=== PATIENT | female | born 1950 | race Caucasian/White ===

== ENCOUNTER 2020-03-17 07:35 | Outpatient (REF) | payer OTHER, SELFPAY ==
[2020-03-17 08:21] LABS: MANUAL DIFF FLAG NO
[2020-03-17 08:30] LABS: Basophils Absolute Auto 0.1 X10*3/uL (0.0-0.2); Eosinophils Absolute Auto 0.2 X10*3/uL (0.0-0.4); Eosinophils Percent Auto 2.8 % (0-4); Hematocrit 40.8 % (37-47); Hemoglobin 13.7 g/dl (12.0-16.0); Imm Gran Abs Auto 0.02 X10*3/uL (0.00-0.03); Imm Gran Pct Auto 0.3 % (0.0-0.4); Lymphocytes Absolute Auto 2.2 X10*3/uL (1.2-4.9); Lymphocytes Percent Auto 38.8 % (20-40); Mean Corpuscular HGB Conc 33.6 g/dl (31.0-35.0); Mean Corpuscular Hemoglobin 28.9 pg (27.0-33.0); Mean Corpuscular Volume 86.1 fL (80-98); Mean Platelet Volume 9.8 fL (9.4-12.3); Monocytes Absolute Auto 0.4 X10*3/uL (0.1-1.2); Monocytes Percent Auto 6.6 % (2-11); Neutrophils Absolute Auto 2.9 X10*3/uL (2.0-8.3); Neutrophils Percent Auto 50.5 % (45-73); Platelet Count 287 X10*3/uL (160-400); Red Blood Count 4.74 X10*6/uL (4.20-5.50); Red Cell Distribution Width 12.1 % (11.0-16.0); White Blood Count 5.8 X10*3/uL (4.8-10.8)
[2020-03-17 08:41] LABS: Glucose Urine UA NEG (NEG); Leukocyte Esterase Urine 1+ (NEG); Nitrite Urine POS (NEG); Specific Gravity - Urine 1.025 (1.005-1.025); Urine Blood 1+ (NEG); Urine Ketones NEG (NEG); Urine Protein NEG (NEG-TRACE)
[2020-03-17 08:45] LABS: Appearance Urine CLOUDY; Color Urine YELLOW
[2020-03-17 08:51] LABS: Bacteria Urine 2+ /LPF; Mucus Urine 1+ /LPF; Renal Epithelial Cells Urine TRACE /LPF; Squamous Epithelial Cell Urine 1+ /LPF; WBC Clumps Urine NOTED
[2020-03-17 08:57] LABS: Estimated Average Glucose 111 mg/dL; Hemoglobin A1c % 5.5 %
[2020-03-17 09:18] LABS: Alanine Aminotransferase 23 U/L (0-31); Albumin Level 4.6 g/dL (3.5-5.0); Alkaline Phosphatase 87 U/L (39-117); Anion Gap 12 (12-20); Aspartate Amino Transferase 17 U/L (5-31); Bilirubin Total 0.5 mg/dL (0.0-1.0); Blood Urea Nitrogen 18 mg/dL (9-16); Calcium 9.6 mg/dL (8.4-10.2); Carbon Dioxide 27 mmol/L (22-29); Chloride 105 mmol/L (96-108); Cholesterol 237 mg/dL; Estimated Glomerular Filt Rate > 60; Glucose Fasting 112 mg/dL (60-99); HDL Cholesterol 54 mg/dL; LDL Cholesterol Calculated 137 mg/dl; Potassium 4.2 mmol/L (3.3-5.1); Sodium 140 mmol/L (135-145); Total Protein 7.4 g/dL (6.5-8.0); Triglycerides 233 mg/dL
[2020-03-17 10:11] LABS: Creatinine Urine 92.18 mg/dL; Microalbum/Creatinine Ratio Ur 28.2 ug/mg cr
== END 2020-03-17 07:36 | disposition home or self-care (01) ==
LOC: HO.LAB 07:35
PROVIDERS: PCP Internal Medicine; Visit Provider Internal Medicine
DX: Z00.00 Encounter for general adult medical examination without abnormal findings (principal); R73.09 Other abnormal glucose; E78.00 Pure hypercholesterolemia, unspecified
CPT/HCPCS: 36415; 80053; 80061; 81001; 82043; 83036; 85025

== ENCOUNTER 2020-04-02 08:10 | Outpatient (REF) | payer OTHER, SELFPAY ==
--- NOTE | ~2020-04-02 | MM_ITS ---
EXAMINATION: BONE DENSITOMETRY CLINICAL INDICATION: Other specified disorders of bone density and structure. COMPARISON: None (current study represents initial baseline exam). TECHNIQUE: Using a Visante DXA System (software version: 13.1) manufactured by [employer], dual-energy x-ray absorptiometry was performed of the lumbar spine and left hip. The images are of good technical quality. Summary results are attached. FINDINGS: AP SPINE L1-L4: BMD 1.027 g/cm2, Z-score -0.1, T-score -1.3, osteopenia. LEFT FEMUR, NECK: BMD 0.867 g/cm2, Z-score 0.0, T-score -1.2, osteopenia. LEFT FEMUR, TOTAL: BMD 0.899 g/cm2, Z-score 0.1, T-score -0.9, normal. IDENTIFIED RISK FACTORS: Menopause. HISTORY OF FRACTURE: None listed. MEDICATIONS: None listed. MM/XR DEXA axial skeleton IMPRESSION: 1. DIAGNOSIS: Osteopenia based on the lowest T-score value of -1.3 in the lumbar spine applying World Health Organization criteria. 2. 10-YEAR FRACTURE RISK PREDICTION, FRAX: Major osteoporotic fracture (clinical spine, forearm, hip or shoulder) 8.7%. Hip fracture 0.9%. 3. Treatment Recommendations: NOF guidelines recommend consideration for treatment in postmenopausal women and men age 50 and older presenting with the following: -A hip or vertebral (clinical or morphometric) fracture. -T-score less than or equal to -2.5 at the femoral neck or spine after appropriate evaluation to exclude secondary causes. -Low bone mass at the hip or spine and a 10-year fracture probability by FRAX of greater than or equal to 3% for hip fracture or greater than or equal to 20% for major osteoporotic fracture based on the [place] adapted WHO algorithm. 4. Other Recommendations: All treatment decisions require clinical judgment and consideration of individual patient factors, including patient preferences, comorbidities, previous drug use, risk factors not captured in the FRAX model (e.g. frailty, falls, vitamin D deficiency, increased bone turnover, interval significant decline in bone density) and possible under or overestimation of fracture risk by FRAX. Additional medical evaluation for secondary cause of low bone mineral density may be appropriate. FUTURE SCAN RECOMMENDATION: People with diagnosed cases of osteoporosis or at high risk for fracture should have regular bone mineral density tests. For patients eligible for Medicare, routine testing is allowed once every 2 years. The testing frequency can be increased to one year for patients who have rapidly progressing disease, those who are receiving or discontinuing medical therapy to restore bone mass, or have additional risk factors.
== END 2020-04-02 08:11 | disposition home or self-care (01) ==
LOC: HO.MAMMO 08:10
PROVIDERS: Visit Provider Internal Medicine
DX: Z13.820 Encounter for screening for osteoporosis (principal); M85.80 Other specified disorders of bone density and structure, unspecified site; Z78.0 Asymptomatic menopausal state
CPT/HCPCS: 77080

== ENCOUNTER 2021-03-25 07:50 | Outpatient (REF) | payer MEDICARE, SELFPAY ==
[2021-03-25 10:51] LABS: MANUAL DIFF FLAG NO
[2021-03-25 11:15] LABS: Basophils Absolute Auto 0.1 X10*3/uL (0.0-0.2); Eosinophils Absolute Auto 0.1 X10*3/uL (0.0-0.4); Eosinophils Percent Auto 2.1 % (0-4); Hemoglobin 14.3 g/dl (12.0-16.0); Imm Gran Abs Auto 0.01 X10*3/uL (0.00-0.03); Imm Gran Pct Auto 0.2 % (0.0-0.4); Lymphocytes Absolute Auto 2.1 X10*3/uL (1.2-4.9); Lymphocytes Percent Auto 35.7 % (20-40); Mean Corpuscular Hemoglobin 29.6 pg (27.0-33.0); Mean Platelet Volume 9.8 fL (9.4-12.3); Monocytes Absolute Auto 0.5 X10*3/uL (0.1-1.2); Monocytes Percent Auto 8.1 % (2-11); Neutrophils Absolute Auto 3.1 x10*3/uL (2.0-8.3); Neutrophils Percent Auto 52.9 % (45-73); Platelet Count 293 X10*3/uL (160-400); Red Blood Count 4.83 X10*6/uL (4.20-5.50); Red Cell Distribution Width 12.9 % (11.0-16.0); White Blood Count 5.8 X10*3/uL (4.8-10.8)
[2021-03-25 11:21] LABS: Estimated Average Glucose 120 mg/dL; Hemoglobin A1C 151.5014 umol/L; Hemoglobin A1c % 5.8 %
[2021-03-25 11:28] LABS: Alanine Aminotransferase 54 U/L (0-31); Albumin Level 4.7 g/dL (3.5-5.0); Alkaline Phosphatase 96 U/L (39-117); Anion Gap 13 (12-20); Aspartate Amino Transferase 32 U/L (5-31); Bilirubin Total 0.7 mg/dL (0.0-1.0); Blood Urea Nitrogen 17 mg/dL (9-16); Calcium 10.4 mg/dL (8.4-10.2); Carbon Dioxide 28 mmol/L (22-29); Chloride 105 mmol/L (96-108); Cholesterol 261 mg/dL; Estimated Glomerular Filt Rate 57; Glucose Random 142 mg/dL (60-115); HDL Cholesterol 47 mg/dL; LDL Cholesterol Calculated 166 mg/dl; Potassium 4.4 mmol/L (3.3-5.1); Sodium 142 mmol/L (135-145); Total Protein 7.9 g/dL (6.5-8.0); Triglycerides 243 mg/dL
[2021-03-25 11:49] LABS: Creatinine Urine 122.57 mg/dL
[2021-03-25 11:51] LABS: Appearance Urine CLOUDY; Color Urine YELLOW; Glucose Urine UA NEG (NEG); Leukocyte Esterase Urine 1+ (NEG); Nitrite Urine POS (NEG); PH 5.5 (5.0-8.0); Specific Gravity - Urine >= 1.030 (1.005-1.025); Urine Blood 1+ (NEG); Urine Ketones NEG (NEG); Urine Protein NEG (NEG-TRACE)
[2021-03-25 12:04] LABS: Bacteria Urine 3+ /LPF; RBC Urine 0-2 /HPF (0); Squamous Epithelial Cell Urine TRACE /LPF
== END 2021-03-25 07:51 | disposition home or self-care (01) ==
LOC: HO.LNP 07:50
PROVIDERS: Visit Provider Internal Medicine
DX: Z00.00 Encounter for general adult medical examination without abnormal findings (principal); R73.03 Prediabetes; E78.00 Pure hypercholesterolemia, unspecified
CPT/HCPCS: 80053; 80061; 81001; 81003; 82043; 83036; 85025

== ENCOUNTER 2021-04-01 15:20 | Outpatient (REF) | payer MEDICARE, SELFPAY ==
[2021-04-01 15:33] LABS: Calcium 10.2 mg/dL (8.4-10.2)
== END 2021-04-01 15:21 | disposition home or self-care (01) ==
LOC: HO.LNP 15:20
PROVIDERS: Visit Provider Internal Medicine
DX: E83.52 Hypercalcemia (principal); N30.01 Acute cystitis with hematuria
CPT/HCPCS: 82310; 87086; 87088; 87186

== ENCOUNTER 2021-08-21 18:39 | Emergency (ER) | payer MEDICARE, SELFPAY ==
--- NOTE | ~2021-08-21 | XR_ITS ---
EXAMINATION: XR CHEST CLINICAL INFORMATION: Fever COMPARISON: 10/29/2018 TECHNIQUE: Frontal view of the chest was obtained. FINDINGS: No defined opacity in the right medial lung base suggest an infiltrate. Possible mild left basilar infiltrate. The mid-upper lung zones are grossly clear. There is no failure. No effusion. The cardiac silhouette is comparable to previous. XR/XR chest 1V IMPRESSION: Findings suggest bilateral basilar infiltrates.
--- NOTE | ~2021-08-21 | CT_ITS ---
EXAMINATION: CT HEAD WITHOUT CONTRAST CLINICAL INFORMATION: Altered mental status COMPARISON: None TECHNIQUE: Contiguous axial imaging was performed from the skull base to vertex without intravenous administration of contrast. This CT examination was performed using dose optimization techniques as appropriate, variously including the following: *Automated exposure control *Adjustment of mA and/or kV according to patient size (this includes techniques or standardized protocols for targeted exams where dose is matched to indication/reason for exam; i.e. extremities or head) *Use of iterative reconstruction technique DLP: 659 mGy-cm FINDINGS: There is no evidence of acute intracranial hemorrhage or territorial infarction. No abnormal mass effect or midline shift is seen. Spaulding to white matter differentiation is well preserved. No extra-axial fluid collections are identified. The ventricles are normal in size. There is no abnormal attenuation within the brain parenchyma. The osseous structures and soft tissues are normal. The mastoid air cells and visualized portions of the paranasal sinuses are well aerated. CT/CT head/brain wo con IMPRESSION: No acute intracranial pathology.
[2021-08-21 18:51] VITALS: BP 153/70; BP 160/68; PULSE 104; PULSE 90; RESP 16; TEMP 39.3; O2SAT 95; BMI 31.9
--- NOTE | 2021-08-21 19:02 | ECG_ITS ---
Test Reason : cp Blood Pressure : / mmHG Vent. Rate : 083 BPM Atrial Rate : 083 BPM P-R Int : 210 ms QRS Dur : 082 ms QT Int : 390 ms P-R-T Axes : 033 002 075 degrees QTc Int : 458 ms Sinus rhythm with 1st degree A-V block Possible Inferior infarct , age undetermined Abnormal ECG When compared with ECG of 29-OCT-2018 20:09, No significant change was found Referred By: Reta Rushing Electronically Signed By:Michael Cruz
--- NOTE | 2021-08-21 19:05 | ED.AMS ---
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 Patient family noted she was not quite right since yesterday. She feels malaisa, nausea, felt off and confused. She is having some difficulty findings words and feels foggy. She denies trauma, ETOH, fevers, new medications. She only takes Tylenol PM PRN. States she had two home positive tests for COVID on 07/26 she is vaccinated x 4. MD complaint: confusion Onset (ago): day(s) (yesterday) Timing confirmed by: family member Severity: mild Consistency of symptoms: waxing and waning Context: other (only new thing is patient reports new stressful family event) Associated symptoms: loss of appetite, malaise, nausea/vomiting and other (confusion) Treatments prior to arrival: other Related Data Previous Rx's Medication Instructions Recorded levofloxacin 500 mg tablet 500 mg PO DAILY 7 days #7 tabs 08/21/21 Allergies Allergy/AdvReac Type Severity Reaction Status Date / Time No Known Allergies Allergy Unverified 10/24/19 15:55 [No Known Allergies*] Review of Systems Review of Systems: Constitutional : No Fever, No Chills, pos Fatigue, pos Malaise ENT/Mouth : No sore throat, No Rhinorrhea Eyes: No Eye Pain, No Swelling, No Redness Cardiovascular : No Chest Pain, No SOB, No Dyspnea on Exertion, No Orthopnea, No Edema, No Palpitations Respiratory : No Cough, No Sputum, No Wheezing Gastrointestinal : No Nausea, No Vomiting, No Diarrhea, No Constipation, No abdominal Pain, No Hematochezia, No Melena Genitourinary : No Dysuria, No Urinary Frequency, No Hematuria, Musculoskeletal : No joint pain, No Myalgias, No Joint Swelling Skin : No Skin Lesions, No rash Neuro : No Weakness, No Numbness, No Dizziness, No Headache, pos confusion Psych : No Anxiety/Panic, No Depression, pos emotional stress Heme/Lymph: No Bruising, No Bleeding,No Lymphadenopathy Endocrine : No Polyuria, No Polydipsia All other systems reviewed and are negative [facility] Past Medical History Attestation statement: The following information was validated with the patient. Medical History No pertinent past medical history Social History Social History (Updated 08/21/21 @ 19:09 by Reta Rushing DO) Alcohol intake: current Alcohol intake frequency: holidays/special occasions only Patient Tobacco Use Status: Never used Tobacco Advance Directives: No Advance Directives Information Provided: Yes Physical Exam ED Vital Signs: Vital Signs - 24 hr 08/21/21 18:51 08/21/21 20:11 Temperature 102.8 F H Pulse Rate 104 H 95 Respiratory Rate 16 16 Blood Pressure 153/70 H 155/65 H Pulse Oximetry 95 95 Oxygen Delivery Method Room Air Room Air BMI result Body Mass Index 31.9 Appearance: Alert. Oriented X3. No acute distress. Eyes: Pupils equal, round and reactive to light. ENT: Pharynx normal. Neck: Normal inspection. Neck supple. no meningeal signs CVS: tachycardic heart rate and rhythm. Pulses normal. Respiratory: No respiratory distress. Breath sounds normal. Abdomen: Soft and non-tender. Skin: Skin warm and dry. Normal skin color. Normal skin turgor. Extremities: No lower extremity edema. No calf ttp Neuro: Oriented X 3. No motor deficit. No sensory deficit. Slow to respond at times, intermittent word finding difficulties Course Course Course Narrative: at this time bacterial infection suspected 750pm - empiric antibiotics ordered, ceftriaxone and azithromycin for CAP ordered given low Na and LFTs will Rx levofloxacin, patient refusing to stay alert and oriented x 3 now that fever is down, partner at bedside aware of findings- they want to go home, given strict precautions to return MDM - Altered Mental Status MDM Narrative Medical decision making narrative: 70 yo female with no PMH came to ED with confusion since yesterday just feeling off with brain fog and some word finding difficulties but no other symptoms. She reports positive home test for COVID on 07/26 after traveling to [place]. At this time she is febrile in the ED. Will obtain labs, cultures, CXR and UA. COVID/flu swab. hydrate and IVF. She has no meningeal signs on exa - no headaches or neck pain Lab Data Result diagrams: 08/21/21 20:00 08/21/21 20:00 Labs: Lab Results 08/21/21 08/21/21 08/21/21 Range/Units 19:46 19:46 20:00 WBC 16.6 H (4.8-10.8) X10*3/uL RBC 4.23 (4.20-5.50) X10*6/uL Hgb 12.6 (12.0-16.0) g/dl Hct 36.0 L (37.0-47.0) % MCV 85.1 (80.0-98.0) fL MCH 29.8 (27.0-33.0) pg MCHC 35.0 (31.0-35.0) g/dl RDW 12.8 (11.0-16.0) % Plt Count 217 D (160-400) X10*3/uL MPV 9.7 (9.4-12.3) fL Immature Gran % (Auto) 0.5 H (0.0-0.4) % Neut % (Auto) 86.9 H (45-73) % Lymph % (Auto) 6.4 L (20-40) % [place] % (Auto) 5.9 (2-11) % Eos % (Auto) 0.0 (0-4) % Baso % (Auto) 0.3 (0-2) % Lymph # (Auto) 1.1 L (1.2-4.9) X10*3/uL [place] # (Auto) 1.0 (0.1-1.2) X10*3/uL Eos # (Auto) 0.0 (0.0-0.4) X10*3/uL Baso # (Auto) 0.1 (0.0-0.2) X10*3/uL Abs Immat Gran (auto) 0.08 H (0.00-0.03) X10*3/uL Absolute Neuts (auto) 14.4 H (2.0-8.3) x10*3/uL Absolute Nucleated RBC 0.000 (0.0-0.012) X10*3/uL Nucleated RBC % (auto) 0.0 (0.0-0.2) /100WBC PT (10.0-13.1) SEC INR (0.9-1.1) Sodium (135-145) mmol/L Potassium (3.3-5.1) mmol/L Chloride (96-108) mmol/L Carbon Dioxide (22-29) mmol/L Anion Gap (12-20) BUN (9-16) mg/dL Creatinine (0.5-1.4) mg/dL Estim Creat Clear Calc Estimated GFR Random Glucose (60-115) mg/dL Lactic Acid (0.5-2.0) mmol/L Calcium (8.4-10.2) mg/dL Magnesium (1.6-2.6) mg/dL Total Bilirubin (0.0-1.0) mg/dL Direct Bilirubin (0.0-0.5) mg/dL AST (5-31) U/L ALT (0-31) U/L Alkaline Phosphatase (39-117) U/L Troponin I High Sens (<3.5-17.0) ng/L Total Protein (6.5-8.0) g/dL Albumin (3.5-5.0) g/dL Lipase (8-78) U/L COVID-19 (PARK) Negative (Negative) COVID-19 Clin Com See Note Influenza Type A (REBECA) Negative (Negative) Influenza Type B (REBECA) Negative (Negative) Influenza A & B Note See Note 08/21/21 08/21/21 08/21/21 Range/Units 20:00 20:00 20:00 WBC (4.8-10.8) X10*3/uL RBC (4.20-5.50) X10*6/uL Hgb (12.0-16.0) g/dl Hct (37.0-47.0) % MCV (80.0-98.0) fL MCH (27.0-33.0) pg MCHC (31.0-35.0) g/dl RDW (11.0-16.0) % Plt Count (160-400) X10*3/uL MPV (9.4-12.3) fL Immature Gran % (Auto) (0.0-0.4) % Neut % (Auto) (45-73) % Lymph % (Auto) (20-40) % [place] % (Auto) (2-11) % Eos % (Auto) (0-4) % Baso % (Auto) (0-2) % Lymph # (Auto) (1.2-4.9) X10*3/uL [place] # (Auto) (0.1-1.2) X10*3/uL Eos # (Auto) (0.0-0.4) X10*3/uL Baso # (Auto) (0.0-0.2) X10*3/uL Abs Immat Gran (auto) (0.00-0.03) X10*3/uL Absolute Neuts (auto) (2.0-8.3) x10*3/uL Absolute Nucleated RBC (0.0-0.012) X10*3/uL Nucleated RBC % (auto) (0.0-0.2) /100WBC PT 13.4 H (10.0-13.1) SEC INR 1.2 H (0.9-1.1) Sodium 133 L (135-145) mmol/L Potassium 3.6 (3.3-5.1) mmol/L Chloride 100 (96-108) mmol/L Carbon Dioxide 22 (22-29) mmol/L Anion Gap 15 (12-20) BUN 14 (9-16) mg/dL Creatinine 0.96 (0.5-1.4) mg/dL Estim Creat Clear Calc 61.1 Estimated GFR 58 Random Glucose 135 H (60-115) mg/dL Lactic Acid 1.3 (0.5-2.0) mmol/L Calcium 9.3 D (8.4-10.2) mg/dL Magnesium 1.9 (1.6-2.6) mg/dL Total Bilirubin 1.5 H (0.0-1.0) mg/dL Direct Bilirubin 0.6 H (0.0-0.5) mg/dL AST 40 H (5-31) U/L ALT 78 H (0-31) U/L Alkaline Phosphatase 97 (39-117) U/L Troponin I High Sens (<3.5-17.0) ng/L Total Protein 7.4 (6.5-8.0) g/dL Albumin 4.5 (3.5-5.0) g/dL Lipase 8 (8-78) U/L COVID-19 (PARK) (Negative) COVID-19 Clin Com Influenza Type A (REBECA) (Negative) Influenza Type B (REBECA) (Negative) Influenza A & B Note 08/21/21 Range/Units 20:00 WBC (4.8-10.8) X10*3/uL RBC (4.20-5.50) X10*6/uL Hgb (12.0-16.0) g/dl Hct (37.0-47.0) % MCV (80.0-98.0) fL MCH (27.0-33.0) pg MCHC (31.0-35.0) g/dl RDW (11.0-16.0) % Plt Count (160-400) X10*3/uL MPV (9.4-12.3) fL Immature Gran % (Auto) (0.0-0.4) % Neut % (Auto) (45-73) % Lymph % (Auto) (20-40) % [place] % (Auto) (2-11) % Eos % (Auto) (0-4) % Baso % (Auto) (0-2) % Lymph # (Auto) (1.2-4.9) X10*3/uL [place] # (Auto) (0.1-1.2) X10*3/uL Eos # (Auto) (0.0-0.4) X10*3/uL Baso # (Auto) (0.0-0.2) X10*3/uL Abs Immat Gran (auto) (0.00-0.03) X10*3/uL Absolute Neuts (auto) (2.0-8.3) x10*3/uL Absolute Nucleated RBC (0.0-0.012) X10*3/uL Nucleated RBC % (auto) (0.0-0.2) /100WBC PT (10.0-13.1) SEC INR (0.9-1.1) Sodium (135-145) mmol/L Potassium (3.3-5.1) mmol/L Chloride (96-108) mmol/L Carbon Dioxide (22-29) mmol/L Anion Gap (12-20) BUN (9-16) mg/dL Creatinine (0.5-1.4) mg/dL Estim Creat Clear Calc Estimated GFR Random Glucose (60-115) mg/dL Lactic Acid (0.5-2.0) mmol/L Calcium (8.4-10.2) mg/dL Magnesium (1.6-2.6) mg/dL Total Bilirubin (0.0-1.0) mg/dL Direct Bilirubin (0.0-0.5) mg/dL AST (5-31) U/L ALT (0-31) U/L Alkaline Phosphatase (39-117) U/L Troponin I High Sens 5.6 (<3.5-17.0) ng/L Total Protein (6.5-8.0) g/dL Albumin (3.5-5.0) g/dL Lipase (8-78) U/L COVID-19 (PARK) (Negative) COVID-19 Clin Com Influenza Type A (REBECA) (Negative) Influenza Type B (REBECA) (Negative) Influenza A & B Note ECG Data ECG #1: Attestation: I personally reviewed and interpreted this ECG as follows: Interpretation: Rate: 83 Rhythm: NSR with 1st degree AVB Cowen: normal Normal P waves. 1st degree AVB Normal QRS complex. ST T wave : normal no LUCILLE qTC: normal prior studies: no acute ischemia The study has been interpreted contemporaneously by me. Discharge Plan Discharge Clinical Impression: Fever, Pneumonia, Leukocytosis Patient Disposition: Home, Self-Care Instructions: Fever in Adults (ED), Leukocytosis (ED), Pneumonia (ED) Additional Instructions: return to ED for any worsening symptoms or concerns if you worsen please return, you were offered admission but refused. you have pneumonia. your antibiotic can cause tendon injury do not exercise while you are on it Prescriptions: New levofloxacin 500 mg tablet 500 mg PO DAILY 7 Days Qty: 7 0RF Stand Alone Forms: Work/School Release Interventions: ED Discharge Assessment Last Done: 08/21/21 22:35 Discharge Date/Time: 08/21/21 22:36
[2021-08-21] MEDS: Acetaminophen 325 MG TABLET 650 MG PO (19:34)
[2021-08-21] MEDS: 0.9 % Sodium Chloride 1,000 ML 999 ML IVCONT (19:35)
[2021-08-21] MEDS: ondansetron HCL 4 MG/2 ML VIAL IVPUSH (19:35)
[2021-08-21] MEDS: cefTRIAXone sodium 1 GM in 0.9 % Sodium Chloride 50 ML IV (20:06)
[2021-08-21 20:11] VITALS: BP 155/65; PULSE 95; RESP 16; O2SAT 95
[2021-08-21 20:12] LABS: MANUAL DIFF FLAG NO
[2021-08-21 20:13] LABS: Hemoglobin 12.6 g/dl (12.0-16.0); Mean Corpuscular Hemoglobin 29.8 pg (27.0-33.0); Mean Corpuscular Volume 85.1 fL (80.0-98.0); Mean Platelet Volume 9.7 fL (9.4-12.3); Platelet Count 217 X10*3/uL (160-400); Red Blood Count 4.23 X10*6/uL (4.20-5.50); Red Cell Distribution Width 12.8 % (11.0-16.0); White Blood Count 16.6 X10*3/uL (4.8-10.8)
[2021-08-21 20:14] LABS: Basophils Absolute Auto 0.1 X10*3/uL (0.0-0.2); Basophils Percent Auto 0.3 % (0-2); Imm Gran Abs Auto 0.08 X10*3/uL (0.00-0.03); Imm Gran Pct Auto 0.5 % (0.0-0.4); Lymphocytes Absolute Auto 1.1 X10*3/uL (1.2-4.9); Lymphocytes Percent Auto 6.4 % (20-40); Monocytes Percent Auto 5.9 % (2-11); Neutrophils Absolute Auto 14.4 x10*3/uL (2.0-8.3); Neutrophils Percent Auto 86.9 % (45-73)
[2021-08-21 20:14] LABS: IDNOW Serial# 55D5AD1C; Influenza A Negative (Negative)
[2021-08-21 20:15] LABS: COVID-19 Test Negative (Negative); IDNOW Serial# 16C4AD1C; Influenza B2 Negative (Negative)
[2021-08-21 20:26] LABS: Lactic Acid 1.3 mmol/L (0.5-2.0)
[2021-08-21 20:30] LABS: Alanine Aminotransferase 78 U/L (0-31); Albumin Level 4.5 g/dL (3.5-5.0); Alkaline Phosphatase 97 U/L (39-117); Anion Gap 15 (12-20); Aspartate Amino Transferase 40 U/L (5-31); Bilirubin Direct 0.6 mg/dL (0.0-0.5); Bilirubin Total 1.5 mg/dL (0.0-1.0); Blood Urea Nitrogen 14 mg/dL (9-16); Calcium 9.3 mg/dL (8.4-10.2); Carbon Dioxide 22 mmol/L (22-29); Chloride 100 mmol/L (96-108); Creatinine Clr Calc Pharmacy 61.1; Estimated Glomerular Filt Rate 58; Glucose Random 135 mg/dL (60-115); Lipase 8 U/L (8-78); Magnesium 1.9 mg/dL (1.6-2.6); Potassium 3.6 mmol/L (3.3-5.1); Sodium 133 mmol/L (135-145); Total Protein 7.4 g/dL (6.5-8.0)
[2021-08-21 20:32] LABS: INTERNATIONAL NORM RATIO 1.2 (0.9-1.1); Prothrombin Time 13.4 SEC (10.0-13.1)
[2021-08-21 20:33] LABS: Troponin-I High Sensitivity 5.6 ng/L (<3.5-17.0)
[2021-08-21] MEDS: levoFLOXacin 500 MG TABLET PO (22:31)
[2021-08-21] MEDS: Ibuprofen 600 MG TABLET PO (22:31)
== END 2021-08-21 22:36 | disposition home or self-care (01) ==
PROVIDERS: Emergency Provider Emergency Medicine
DX: J18.9 Pneumonia, unspecified organism (principal); R50.9 Fever, unspecified; R42 Dizziness and giddiness; D72.829 Elevated white blood cell count, unspecified; Z20.822 Contact with and (suspected) exposure to COVID-19
CPT/HCPCS: 36415; 70450; 71045; 80048; 80076; 83605; 83690; 83735; 84484; 85025; 85610; 87040; 87502; 87635; 93005; 96361; 96365; 96366; 96375; 99284; J0696; J2405

== ENCOUNTER 2021-09-06 15:14 | Outpatient (REF) | payer MEDICARE, SELFPAY ==
--- NOTE | ~2021-09-06 | XR_ITS ---
EXAMINATION: XR CHEST CLINICAL INFORMATION: History of Covid 19 one month ago. SOB COMPARISON: None TECHNIQUE: 2 views of the chest were obtained. FINDINGS: The lungs are well-expanded and clear of acute pneumonic process. The heart size and pulmonary vascularity is normal. No gross bony abnormality seen. XR/XR chest 2V IMPRESSION: Unremarkable chest exam.
== END 2021-09-06 15:15 | disposition home or self-care (01) ==
LOC: HO.XRAY 15:14
PROVIDERS: PCP Internal Medicine; Visit Provider Internal Medicine
DX: U07.1 COVID-19 (principal)
CPT/HCPCS: 71046

== ENCOUNTER 2021-09-20 11:08 | Outpatient (REF) | payer MEDICARE, SELFPAY ==
[2021-09-20 12:15] LABS: Estimated Average Glucose 111 mg/dL; Hemoglobin A1c % 5.5 %
[2021-09-20 12:31] LABS: Alanine Aminotransferase 65 U/L (0-31); Albumin Level 4.5 g/dL (3.5-5.0); Alkaline Phosphatase 97 U/L (39-117); Aspartate Amino Transferase 44 U/L (5-31); Bilirubin Direct 0.3 mg/dL (0.0-0.5); Cholesterol 244 mg/dL; Glucose Fasting 129 mg/dL (60-99); HDL Cholesterol 54 mg/dL; LDL Cholesterol Calculated 142 mg/dl; Total Protein 7.4 g/dL (6.5-8.0); Triglycerides 240 mg/dL
[2021-09-20 13:23] LABS: Reflex LDLD? No
== END 2021-09-20 11:09 | disposition home or self-care (01) ==
LOC: HO.LNP 11:08
PROVIDERS: Visit Provider Internal Medicine
DX: R73.03 Prediabetes (principal); E78.00 Pure hypercholesterolemia, unspecified
CPT/HCPCS: 80061; 80076; 82947; 83036

== ENCOUNTER 2021-12-01 | Outpatient (REF) | payer MEDICARE, SELFPAY ==
--- NOTE | ~2021-12-01 | XR_ITS ---
EXAMINATION: XR TIBIA AND FIBULA, RIGHT CLINICAL INFORMATION: Pain COMPARISON: None TECHNIQUE: AP and lateral views of the right tibia and fibula were obtained. FINDINGS: No acute finding. There is some degeneration at the level of the knee joint. No suspicious periosteal change and some smooth-appearing periosteal change mid tibia. An element of stress-related change cannot be excluded. No fracture line is seen. XR/XR tibia fibula RT 2V IMPRESSION: No acute finding. Some smooth periosteal change mid fibula could be related to stress-related injury. Some mild degeneration in the right ankle.
== END 2021-12-01 00:01 | disposition home or self-care (01) ==
LOC: HO.HOSX
PROVIDERS: Visit Provider Physician Assistant
DX: S87.81XA Crushing injury of right lower leg, initial encounter (principal)
CPT/HCPCS: 73590; 99202

== ENCOUNTER 2022-01-18 11:00 | Outpatient (REF) | payer MEDICARE, SELFPAY ==
[2022-01-18 11:38] LABS: Alanine Aminotransferase 96 U/L (0-31); Albumin Level 4.7 g/dL (3.5-5.0); Alkaline Phosphatase 95 U/L (39-117); Aspartate Amino Transferase 60 U/L (5-31); Bilirubin Direct 0.2 mg/dL (0.0-0.5); Bilirubin Total 0.8 mg/dL (0.0-1.0); Total Protein 7.4 g/dL (6.5-8.0)
== END 2022-01-18 11:01 | disposition home or self-care (01) ==
LOC: HO.LNP 11:00
PROVIDERS: Visit Provider Internal Medicine
DX: R74.8 Abnormal levels of other serum enzymes (principal)
CPT/HCPCS: 80076

== ENCOUNTER 2022-03-18 08:15 | Outpatient (REF) | payer MEDICARE, SELFPAY ==
--- NOTE | ~2022-03-18 | US_ITS ---
EXAMINATION: US ABDOMEN LIMITED CLINICAL INFORMATION: BATISTA. COMPARISON: None TECHNIQUE: Real-time imaging of the right upper quadrant abdominal viscera. FINDINGS: PANCREAS: Unremarkable. No mass or ductal dilatation is seen. There is no peripancreatic fluid collection noted. LIVER: There is hepatomegaly, with a longitudinal span of 20.6 cm. The liver contour is normal. There is diffuse increased liver parenchymal echogenicity, consistent with infiltrative hepatocellular disease. No focal hepatic lesion. There is no intrahepatic biliary duct dilatation seen. GALLBLADDER: There are shadowing gallstones. The gallbladder is physiologically distended. No evidence of gallbladder wall thickening or pericholecystic fluid. COMMON BILE DUCT: Normal in caliber measuring 0.6 cm in diameter. RIGHT KIDNEY: At the lower pole laterally, a 7 mm in maximal diameter anechoic, simple cyst is seen. This is a benign finding, for which no imaging follow-up is recommended. No hydronephrosis or renal calculi. The kidney measures 10.8 cm in maximum dimension. FREE FLUID: None. US/US abdomen limited IMPRESSION: 1. There is hepatomegaly. 2. There is generalized increase in hepatic echotexture, consistent with fatty infiltration or hepatocellular disease. Please correlate clinically. Provided history of BATISTA noted. No focal hepatic mass or intrahepatic biliary dilatation is seen. 3. There is cholelithiasis, without cholecystitis or choledocholithiasis. 4. A 7 mm simple right renal lower pole cyst is incidentally noted.
== END 2022-03-18 08:16 | disposition home or self-care (01) ==
LOC: HO.US 08:15
PROVIDERS: PCP Internal Medicine; Visit Provider Internal Medicine
DX: K75.81 Nonalcoholic steatohepatitis (NASH) (principal)
CPT/HCPCS: 76705

== ENCOUNTER 2022-03-31 11:31 | Outpatient (REF) | payer MEDICARE, SELFPAY ==
[2022-03-31 11:37] LABS: MANUAL DIFF FLAG NO
[2022-03-31 12:34] LABS: Basophils Absolute Auto 0.1 X10*3/uL (0.0-0.2); Basophils Percent Auto 1.8 % (0-2); Eosinophils Absolute Auto 0.2 X10*3/uL (0.0-0.4); Eosinophils Percent Auto 2.6 % (0-4); Hematocrit 42.5 % (37.0-47.0); Hemoglobin 14.6 g/dl (12.0-16.0); Imm Gran Abs Auto 0.02 X10*3/uL (0.00-0.03); Imm Gran Pct Auto 0.3 % (0.0-0.4); Lymphocytes Absolute Auto 2.3 X10*3/uL (1.2-4.9); Lymphocytes Percent Auto 37.2 % (20-40); Mean Corpuscular HGB Conc 34.4 g/dl (31.0-35.0); Mean Corpuscular Hemoglobin 29.5 pg (27.0-33.0); Mean Corpuscular Volume 85.9 fL (80.0-98.0); Monocytes Absolute Auto 0.4 X10*3/uL (0.1-1.2); Monocytes Percent Auto 6.8 % (2-11); Neutrophils Absolute Auto 3.2 x10*3/uL (2.0-8.3); Neutrophils Percent Auto 51.3 % (45-73); Platelet Count 290 X10*3/uL (160-400); Red Blood Count 4.95 X10*6/uL (4.20-5.50); Red Cell Distribution Width 12.1 % (11.0-16.0); White Blood Count 6.2 X10*3/uL (4.8-10.8)
[2022-03-31 12:37] LABS: Appearance Urine Clear; Color Urine Yellow; Glucose Urine UA Negative (Negative); Leukocyte Esterase Urine Negative (Negative); Nitrite Urine Negative (Negative); PH 5.5 (5.0-9.0); Specific Gravity - Urine >= 1.030 (1.005-1.025); UMIC TRIGGER UACC YES; Urine Blood Trace (Negative); Urine Ketones Negative (Negative); Urine Protein Negative (Neg-Trace)
[2022-03-31 12:47] LABS: Bacteria Urine None Seen (None Seen); Hyaline Casts Urine 0-2 /LPF (0-2); RBC Urine 0-2 /HPF (0-2); Squamous Epithelial Cell Urine 0-2 /HPF (0-2); WBC Urine 0-5 /HPF (0-5)
[2022-03-31 12:58] LABS: Alanine Aminotransferase 83 U/L (0-31); Albumin Level 4.6 g/dL (3.5-5.0); Alkaline Phosphatase 95 U/L (39-117); Anion Gap 15 (12-20); Aspartate Amino Transferase 56 U/L (5-31); Blood Urea Nitrogen 17 mg/dL (9-16); Calcium 9.9 mg/dL (8.4-10.2); Carbon Dioxide 24 mmol/L (22-29); Chloride 107 mmol/L (96-108); Cholesterol 242 mg/dL; Estimated Glomerular Filt Rate 58; Glucose Fasting 134 mg/dL (60-99); HDL Cholesterol 51 mg/dL; LDL Cholesterol Calculated 162 mg/dl; Potassium 4.2 mmol/L (3.3-5.1); Sodium 142 mmol/L (135-145); Total Protein 7.5 g/dL (6.5-8.0); Triglycerides 145 mg/dL
[2022-03-31 13:00] LABS: Estimated Average Glucose 123 mg/dL; Hemoglobin A1c % 5.9 %
[2022-03-31 13:50] LABS: Microalbum/Creatinine Ratio Ur 6.9 ug/mg cr
== END 2022-03-31 11:32 | disposition home or self-care (01) ==
LOC: HO.LNP 11:31
PROVIDERS: Visit Provider Internal Medicine
DX: R73.03 Prediabetes (principal); E78.00 Pure hypercholesterolemia, unspecified; E83.52 Hypercalcemia
CPT/HCPCS: 80053; 80061; 81001; 82043; 83036; 85025

== ENCOUNTER 2022-04-26 09:54 | Outpatient (REF) | payer MEDICARE, SELFPAY ==
--- NOTE | ~2022-04-26 | US_ITS ---
EXAMINATION: US ABDOMEN LIMITED WITH LIVER ELASTOGRAPHY CLINICAL INFORMATION: Nonalcoholic steatohepatitis. COMPARISON: Abdominal ultrasound dated 03/18/2022. TECHNIQUE: Real-time imaging of the abdominal viscera. Noninvasive ultrasound liver fibrosis assessment is performed using Madelin ElastPQ point quantification shear wave elastography (2D-SWE) with a C5-2 MHz transducer. Multiple elastography samples are obtained. FINDINGS: PANCREAS: Normal. The visualized pancreatic head and body are normal in appearance. The remainder of the pancreas is obscured from visualization by the overlying bowel gas. LIVER: There is mild hepatic megaly. Liver is normal in contour and increased in echogenicity. No focal lesion or intrahepatic biliary duct dilatation. The right lobe measures 17.3 cm in length. The left lobe measures 14.0 cm in length. Portal flow is towards the liver (hepatopetal). Shear wave liver elastography median stiffness is 2.28 m/s (reference: normal median stiffness is 1.3 m/s or less). IQR/median stiffness to assess sampling precision is 0.12 (reference: good quality data set is IQR/median stiffness of 0.15 or less). GALLBLADDER: Shadowing gallstones and biliary sludge are seen. The gallbladder is physiologically distended without evidence of polyps, wall thickening or pericholecystic fluid. COMMON BILE DUCT: Normal in caliber measuring 0.6 cm in diameter. RIGHT KIDNEY: At the interpolar aspect, a 9 mm in maximal diameter anechoic, simple cyst is seen. At the interpolar aspect, an 8 x 9 x 8 mm heterogeneously hyperechoic mass is faintly appreciated. This shows no associated color Doppler flow. No hydronephrosis. No renal calculi or focal parenchymal lesions. The kidney measures 11.4 cm in maximum dimension. FREE FLUID: None. US/US abdomen zazueta w elastography IMPRESSION: 1. There is mild hepatomegaly. 2. There is generalized increase in hepatic echotexture, consistent with fatty infiltration or hepatocellular disease. Please correlate clinically. No focal hepatic mass or intrahepatic biliary dilatation is seen. 3. Liver elastography: Measuremensts are consistent with compensated advanced chronic liver disease. 4. There is cholelithiasis and biliary sludge. 5. A benign, simple right renal cyst is seen, for which no imaging follow-up is recommended. There is a further 9 mm interpolar heterogeneously hyperechoic mass, possibly a benign angiomyolipoma. The exact etiology is indeterminate. This could be further evaluated with abdominal CT (renal mass protocol), if clinically indicated. REFERENCE: Society of Radiologists in Ultrasound Liver Stiffness Thresholds (2020): LIVER STIFFNESS THRESHOLDS: *Liver Stiffness equal or less than 1.3 m/s: High probability of being normal. *Liver Stiffness less than 1.7 m/s: In the absence of other known clinical signs, rules out compensated advanced chronic liver disease. *Liver Stiffness 1.7-2.1 m/s: Suggestive of compensated advanced chronic liver disease but need further test for confirmation. *Liver Stiffness over 2.1 m/s: Rules in compensated advanced chronic liver disease. *Liver Stiffness over 2.4 m/s: Suggestive of clinically significant portal hypertension. QUALITY OF DATA SET: *IQR/Median value equal or less than 0.15 implies a quality data set. *IQR/Median value over 0.15 implies a poor quality data set. SIGNIFICANT CHANGE FROM PRIOR EXAM: Significant change if liver stiffness measurement is 10% or greater from prior exam. OTHER CONSIDERATIONS: The stage of liver fibrosis may be overestimated in the setting of acute hepatitis, liver inflammation, elevated liver function tests, hepatic vascular congestion, obstructive cholestasis, non-fasting state, and infiltrative diseases such as amyloidosis and lymphoma. In some patients with NAFLD, the liver stiffness thresholds for compensated advanced chronic liver disease may be lower. In causes other than viral hepatitis and NAFLD, liver stiffness thresholds are not well established.
== END 2022-04-26 09:55 | disposition home or self-care (01) ==
LOC: HO.US 09:54
PROVIDERS: PCP Internal Medicine; Visit Provider Internal Medicine
DX: K75.81 Nonalcoholic steatohepatitis (NASH) (principal)
CPT/HCPCS: 76705; 76981

== ENCOUNTER 2022-06-21 10:28 | Outpatient (REF) | payer MEDICARE, SELFPAY ==
[2022-06-21 11:08] LABS: Alanine Aminotransferase 83 U/L (0-31); Albumin Level 4.5 g/dL (3.5-5.0); Alkaline Phosphatase 100 U/L (39-117); Aspartate Amino Transferase 53 U/L (5-31); Bilirubin Direct 0.2 mg/dL (0.0-0.5); Bilirubin Total 0.7 mg/dL (0.0-1.0); Total Protein 7.2 g/dL (6.5-8.0)
== END 2022-06-21 10:29 | disposition home or self-care (01) ==
LOC: HO.LNP 10:28
PROVIDERS: PCP Internal Medicine; Visit Provider Internal Medicine
DX: K75.81 Nonalcoholic steatohepatitis (NASH) (principal)
CPT/HCPCS: 80076

== ENCOUNTER → 2022-06-22 14:10 | Outpatient (BNVA) | payer MEDICARE, SELFPAY | PROVIDERS: PCP Internal Medicine; Visit Provider Nurse Practitioner Family | DX: Z12.11 Encounter for screening for malignant neoplasm of colon (principal); R13.10 Dysphagia, unspecified; K21.9 Gastro-esophageal reflux disease without esophagitis; R74.01 Elevation of levels of liver transaminase levels; K58.9 Irritable bowel syndrome, unspecified; R79.89 Other specified abnormal findings of blood chemistry; R74.8 Abnormal levels of other serum enzymes | CPT/HCPCS: 99202 ==

== ENCOUNTER 2022-06-29 10:37 | Outpatient (REF) | payer MEDICARE, SELFPAY ==
[2022-06-29 11:32] LABS: INTERNATIONAL NORM RATIO 0.9 (0.9-1.1); Prothrombin Time 10.8 SEC (10.0-13.1)
[2022-06-29 12:12] LABS: Erythrocyte Sedimentation Rate 8 MM/HR (0-20)
[2022-06-29 12:49] LABS: C Reactive Protein 1.12 mg/dL (< or = 0.50); Gamma Glutamyl Transpeptidase 240 U/L (7-33)
[2022-06-29 13:01] LABS: Ferritin 543 ng/mL (10-250)
[2022-07-01 08:21] LABS: HBc Num1 0.18 S/CO (0.00-0.79); HBsAGNum1 0.31 S/CO (0.00-0.99); HIV AB/AG Nonreactive (Nonreactive); HIV Num 1 0.07 S/CO (0.00-0.99); Hepatitis A Antibody IgM 0.11 Index (0-0.79); Hepatitis B Core Antibody Nonreactive (Nonreactive); Hepatitis B Surface Antigen Negative (Negative); ~HepC Num1 0.09 S/CO (0.00-0.79); ~Hepatitis A Antibody IgM Nonreactive (Nonreactive); ~Hepatitis B Surface Antibody NONREACTIVE (Nonreactive); ~Hepatitis C Antibody Nonreactive (Nonreactive)
[2022-07-01 13:48] LABS: Alpha Fetoprotein 6.6 ng/mL
[2022-07-01 17:08] LABS: Ceruloplasmin 28 mg/dL (18-53)
[2022-07-07 10:24] LABS: Mitochondrial Antibodies NEGATIVE (NEGATIVE)
[2022-07-08 00:18] LABS: FIB-ALT 68 U/L (6-29); FIB-Alpha-2-Macroglobulin 183 mg/dL (106-279); FIB-Apolipoprotein A1 173 mg/dL (101-198); FIB-GGT 190 U/L (3-65); FIB-Haptoglobin 116 mg/dL (43-212); FIB-Total Bilirubin 0.6 mg/dL (0.2-1.2); Liver Fibrosis Score 0.39; Liver Fibrosis Stage F1-F2; Nec Inflam Act Grade A1-A2; Nec Inflam Act Score 0.44
[2022-07-08 23:24] LABS: Smooth Muscle Antibody <20 U (<20)
== END 2022-06-29 10:38 | disposition home or self-care (01) ==
LOC: HO.LAB 10:37
PROVIDERS: PCP Internal Medicine; Visit Provider Nurse Practitioner Family
DX: R79.89 Other specified abnormal findings of blood chemistry (principal); K58.9 Irritable bowel syndrome, unspecified; R74.8 Abnormal levels of other serum enzymes; R74.01 Elevation of levels of liver transaminase levels; R16.0 Hepatomegaly, not elsewhere classified; K76.0 Fatty (change of) liver, not elsewhere classified
CPT/HCPCS: 36415; 81596; 82105; 82390; 82728; 82977; 85610; 85652; 86015; 86140; 86255; 86256; 86704; 86706; 86709; 86803; 87340; 87389

== ENCOUNTER 2022-08-16 10:39 | Outpatient (REF) | payer MEDICARE, SELFPAY ==
[2022-08-16 11:16] LABS: Alanine Aminotransferase 70 U/L (0-31); Albumin Level 4.4 g/dL (3.5-5.0); Alkaline Phosphatase 92 U/L (39-117); Aspartate Amino Transferase 51 U/L (5-31); Bilirubin Direct 0.2 mg/dL (0.0-0.5); Total Protein 7.2 g/dL (6.5-8.0)
== END 2022-08-16 10:40 | disposition home or self-care (01) ==
LOC: HO.LNP 10:39
PROVIDERS: Visit Provider Internal Medicine
DX: K75.81 Nonalcoholic steatohepatitis (NASH) (principal)
CPT/HCPCS: 80076

== ENCOUNTER 2022-11-28 10:59 | Outpatient (REF) | payer MEDICARE, SELFPAY ==
[2022-11-28 11:21] LABS: Estimated Average Glucose 114 mg/dL; Hemoglobin A1c % 5.6 % (<6.0)
[2022-11-28 11:37] LABS: Alanine Aminotransferase 91 U/L (0-31); Albumin Level 4.4 g/dL (3.5-5.0); Alkaline Phosphatase 98 U/L (39-117); Aspartate Amino Transferase 56 U/L (5-31); Bilirubin Direct 0.2 mg/dL (0.0-0.5); Bilirubin Total 0.5 mg/dL (0.0-1.0); Glucose Fasting 125 mg/dL (60-99); Total Protein 7.6 g/dL (6.5-8.0)
[2022-11-28 11:38] LABS: Cholesterol 219 mg/dL (<200); HDL Cholesterol 54 mg/dL (>40); LDL Cholesterol Calculated 139 mg/dL (<100); Triglycerides 131 mg/dL (<150)
[2022-11-28 12:13] LABS: Reflex LDLD? No
== END 2022-11-28 11:00 | disposition home or self-care (01) ==
LOC: HO.LNP 10:59
PROVIDERS: Visit Provider Internal Medicine
DX: E78.00 Pure hypercholesterolemia, unspecified (principal); R73.03 Prediabetes
CPT/HCPCS: 80061; 80076; 82947; 83036

== ENCOUNTER 2023-01-03 09:29 | Day surgery (SDC) | payer MEDICARE, SELFPAY ==
--- NOTE | 2023-01-02 09:18 | HO.ANESPROP2 ---
Documented by User: Lashanda Tony NP 01/02/23 09:18 HPI - Anesthesia Eval Consult details Narrative: 72yo F for Upper Endoscopy and Colonoscopy [facility] Active Problems Active Problems: All Active Problems (Updated 12/01/21 @ 13:39 by Sean Argueta) Crushing injury of right leg (Acute) Past Medical History Medical History No pertinent past medical history Family History Family History (Updated 06/22/22 @ 14:53 by VICKY LiuINGRIS) Father Diabetes mellitus Colorectal cancer Mother Glioblastoma Social History Alcohol intake: current Alcohol intake frequency: holidays/special occasions only Patient Tobacco Use Status: Never used Tobacco Advance Directives: No Advance Directives Information Provided: Yes Current occupational status: employed Current occupation: [employer] Meds Allergies Allergy/AdvReac Type Severity Reaction Status Date / Time No Known Allergies Allergy Unverified 06/22/22 14:23 [No Known Allergies*] Assessment and Plan Assessment Anesthesia Assessment: Chart Reviewed Documented by User: Gianni Cruz MD 01/03/23 10:10 [facility] Past Medical History Medical History No pertinent past medical history Family History Family History (Updated 06/22/22 @ 14:53 by RAÚL Liu) Father Diabetes mellitus Colorectal cancer Mother Glioblastoma Family history of problems with anesthesia: No Surgical History History of Problems with Anesthesia: No Social History Alcohol intake: current Alcohol intake frequency: holidays/special occasions only Patient Tobacco Use Status: Never used Tobacco Advance Directives: No Advance Directives Information Provided: Yes Current occupational status: employed Current occupation: [employer] Meds Allergies Allergy/AdvReac Type Severity Reaction Status Date / Time No Known Allergies Allergy Unverified 06/22/22 14:23 [No Known Allergies*] Exam Airway Mallampati Class: II TM Dist: >3cm Neck ROM: Full Assessment and Plan Assessment Anesthesia Assessment: Anesthesia Plan Discussed Final Anesthetic Review Family History of Problems with Anesthesia: No History of Problems with Anesthesia: No NPO: Yes ASA Class: II Final Preanesthetic Review: No Changes in Pt Med Stat, Meds/Allgs Chart Reviewed, Consent Obtained/Reviewed and Anes Risks/Benef Reviewed Patient Risk: Low Procedure Risk: Low Anesthetic Plan Anesthetic Plan: MAC: Disposition: Standard PACU
[2023-01-03 10:09] VITALS: BP 151/73; PULSE 70; RESP 18; TEMP 36.1; O2SAT 95
[2023-01-03] MEDS: Lactated Ringers 1,000 ML 100 ML IVCONT (10:14)
--- NOTE | 2023-01-03 10:18 | MHC.SHP ---
Pre-Procedural Eval Section A Date of Service: 01/03/23 Section B Chief Complaint: Encounter for screening for malignant neoplasm of Details of Present Illness: dysphagia Relevant Family History (Specify if Yes): No Relevant Social History: None Present Medications: see Short Stay Collaborative assessment Medical History: No relevant PMH History of Previous Operations: No relevant previous surgery Allergies: Allergies Allergy/AdvReac Type Severity Reaction Status Date / Time No Known Allergies Allergy Unverified 06/22/22 14:23 [No Known Allergies*] Review of Systems Sugical H&P ROS: Negative: Constitution, Cardiovascular, Respiratory, Neurological, Psychiatric, Hem-Onc, Allergic/Immunologic, Gastrointestinal, Genitourinary, Musculoskeletal, Integumentary, Endocrine and Eyes/Ears/Nose/Throat Exam Surgical H&P Exam: Normal: HEENT, Normal: Heart, Normal: Lungs, Normal: Extremities, Normal: Abdomen, Normal: Skin and Normal: Neurological Plan Diagnosis/Plan: Unchanged I have reviewed the history and physical and performed a pertinent physical examination on my patient. No changes have occurred unless specified. Time Spent With Patient Time: Total time managing care of this patient today ____ minutes.
--- NOTE | 2023-01-03 10:21 | P.OP_ITS ---
Operative Note Operative Note Date of Service: 01/03/23 Narrative: Operative Information Procedure Description: EGD, Colonoscopy Indication: dysphagia and colon screening Anesthesia: MAC FLEXIBLE TRANSORAL UPPER GASTROINTESTINAL ENDOSCOPY AND COLONOSCOPY PROCEDURE NOTE UPPER ENDOSCOPY Consent: Indications for the procedure and potential complications of bleeding, perforation, reaction to medications and missed diagnosis were discussed with the patient and informed consent was obtained. Instrument: Olympus GIF H 190 J mid size upper endoscope Monitoring: Vital signs and clinical assessment, continuous EKG monitoring, Pulse oximetry, Carbon Dioxide monitoring and blood pressure monitoring were done throughout the procedure. Procedure: The patient was placed in the left lateral decubitis position and pre-procedure medications were administered and a bite block was placed. The endoscope was inserted into the mouth and advanced under direct vision to the third part of duodenum. A careful inspection was made as the upper endoscope was withdrawn including a retroflexed examination of the proximal stomach; Findings and interventions are described below. Findings: Larynx:normal Esophagus: GE junction at 37 cm, diaphragm hiatus at 40 cm, 3 cm sliding hiatal hernia noted, congestion erythema and edema at GEJ with esophagitis, schatzki ring noted, Scope was passed and the ring was dilated with tear noted. UES dilated with balloon to 19 mm. Stomach: Patchy erythema. Biopsies were obtained. Grade 2 flap valve on retroflexed examination of the cardia. Duodenum: Bulbar duodenitis, bx taken Intervention: Biopsies as noted above, balloon dilation COLONOSCOPY Instrument: Olympus variable stiffness pediatric scope 190L Colonoscopy Monitoring: Vital signs and clinical assessment, continuous EKG monitoring, Pulse oximetry, Carbon Dioxide monitoring and blood pressure monitoring were done throughout the procedure. Colon withdrawal time was 15 minutes. Procedure: The patient was placed in the left lateral decubitis position and pre-procedure medications were administered. After a digital rectal examination of the ano-rectum, the video colonoscope was inserted into the rectum and advanced through the colon to the cecum/TI. The colonoscope was slowly withdrawn in a retrograde panoramic fashion and the colon mucosa was carefully examined including a retroflexed view of the rectum. Findings and interventions are described below. Procedure Difficulty:easy Findings: Terminal Ileum-normal Cecum:normal Ascending Colon: distal ascending colon sessile polyp noted measuring about 15 - 17 mm, raised with eleview and then removed with hot snare with x 2 ultra clips applied Transverse Colon -normal Descending Colon:normal Sigmoid Colon:moderate diverticulosis Rectum: Retroflexion with medium sized internal hemorrhoids, grade I Anorectum - normal Colon preparation: [place] Bowel Preparation Scale Right colon; 2 Transverse colon: 3 Left colon; 2 (0 = Unprepared colon segment with mucosa not seen due to solid stool that cannot be cleared. 1 = Portion of mucosa of the colon segment seen, but other areas of the colon segment not well seen due to staining, residual stool and/or opaque liquid. 2 = Minor amount of residual staining, small fragments of stool and/or opaque liquid, but mucosa of colon segment seen well. 3 = Entire mucosa of colon segment seen well with no residual staining, small fragments of stool or opaque liquid) Impression and Post Procedure Diagnosis: Endoscopy Findings: hiatal hernia esophagitis gastritis schatzki ring duodenitis Colonoscopy Findings: polyp internal hemorrhoids diverticular disease Plan: Await Pathology results Repeat Colonoscopy in 3 years due to large subtle right sided polyp, clinically appears to be serrated or earlier if clinically indicated High fiber diet leaflet avoid straining at stool, epsom salts and sitz bath, anusol supps or cream consider trial of PPI, GERd precautions Above findings were reviewed with the patient and relevant handouts were provided if indicated.
[2023-01-03 11:17] VITALS: BP 122/71; PULSE 67; RESP 16; TEMP 36.3; O2SAT 96
[2023-01-03 11:32] VITALS: BP 143/80; PULSE 62; RESP 16; TEMP 36.8; O2SAT 96
[2023-01-03] MEDS: Mag&Al/Sim/Diphenhyd/Lidocaine 10 ML ORAL.SUSP PO (12:11)
== END 2023-01-03 12:21 | disposition home or self-care (01) ==
PROVIDERS: PCP Internal Medicine; Visit Provider Internal Medicine Gastroenterology
PROC: (CPT 45385; principal; 2023-01-03 12:00)
DX: Z12.11 Encounter for screening for malignant neoplasm of colon (principal); D12.2 Benign neoplasm of ascending colon; K57.30 Diverticulosis of large intestine without perforation or abscess without bleeding; K64.0 First degree hemorrhoids; R13.14 Dysphagia, pharyngoesophageal phase; K22.2 Esophageal obstruction; K20.80 Other esophagitis without bleeding; K29.50 Unspecified chronic gastritis without bleeding; K29.80 Duodenitis without bleeding; K44.9 Diaphragmatic hernia without obstruction or gangrene
CPT/HCPCS: 45385; 45381; 43249; 43239; 88305; 88342; C1726; J2704

== ENCOUNTER → 2023-01-03 09:29 | Outpatient (BNV) | payer MEDICARE, SELFPAY | PROVIDERS: PCP Internal Medicine; Visit Provider Internal Medicine Gastroenterology | DX: K22.2 Esophageal obstruction (principal); K44.9 Diaphragmatic hernia without obstruction or gangrene; K20.90 Esophagitis, unspecified without bleeding; K29.90 Gastroduodenitis, unspecified, without bleeding; K31.89 Other diseases of stomach and duodenum; Z12.11 Encounter for screening for malignant neoplasm of colon; K63.5 Polyp of colon; K57.90 Diverticulosis of intestine, part unspecified, without perforation or abscess without bleeding; K64.8 Other hemorrhoids | CPT/HCPCS: 43239; 43249; 45381; 45385 ==

== ENCOUNTER 2023-01-13 08:33 | Outpatient (REF) | payer MEDICARE, SELFPAY | END 2023-01-13 08:34 | disposition home or self-care (01) | LOC: HO.LAB 08:33 | PROVIDERS: PCP Internal Medicine; Visit Provider Nurse Practitioner Family | DX: K21.9 Gastro-esophageal reflux disease without esophagitis (principal); R13.14 Dysphagia, pharyngoesophageal phase; R74.01 Elevation of levels of liver transaminase levels; K20.0 Eosinophilic esophagitis; K22.70 Barrett's esophagus without dysplasia | CPT/HCPCS: 36415; 99212 ==

== ENCOUNTER 2023-01-13 08:33 | Outpatient (AMB) | payer MEDICARE, SELFPAY ==
--- NOTE | 2023-01-13 08:41 | A.OFFVIS_ITS ---
Intake Vital Signs 01/13/23 08:42 Height 5 ft 4 in BMI Reason not done Patient refused/unable BP 179/79 H Blood Pressure Location Rt brachial Position Sitting Pulse 72 Pulse Source Pulse Oximeter Intake Visit Reasons: S/P EGD, [place]; Dr. Bishop Intake Note: Pt presents to the office today for a s/p EGD, [place]. Pt states she is feeling well and denies any GI concerns at this time. Allergies No Known Allergies [No Known Allergies*] Allergy (Unverified 01/13/23 08:43) HPI S/P EGD, [place]; Dr. Bishop HPI Details LAST VISIT: Transaminitis Elevated liver enzymes were rule out hemochromatosis, out immune disorder. Patient will going get the blood work done when she will be coming for her procedures Screen for colon cancer Patient denies any issues with anesthesia in the past history of sleep apnea. What to expect before during and after the procedure discussed with patient. Importance about good bowel prep stressed with patient. Patient will do MiraLax prep with Dulcolax tablets. Will do split prep at 17:00 and 22:00 Dysphagia Patient reports occasional dysphagia. Discussed with patient eating small meals. Chewing well. Will send her for upper endoscopy to rule out Schatzki ring, esophagitis, gastritis. Patient is not taking any medication currently. She might need to be on PPI. Treatment pending stools. I will see her after the procedure performed on as needed basis. Patient is agreeable to this plan and verbalizes understanding of instructions. She was given the opportunity to ask questions and all questions answered. ? Thank you for allowing me to participate in her care Plan Orders Orders Alpha Fetoprotein 06/22/22 R79.89 - Other specified abnormal findings of blood chemistry Hepatitis A,B,C Profile 06/22/22.89 - Other specified abnormal findings of blood chemistry Smooth Muscle Antibody 06/22/22 R7.89 - Other specified abnormal findings of blood chemistry HIV Ab/Ag 06/22/22 R7. - Other specified abnormal findings of blood chemistry C Reactive Protein 06/22/22 K58.9 - Irritable bowel syndrome without diarrhea Ceruloplasmin 06/22/22 R7.89 - Other specified abnormal findings of blood chemistry Erythrocyte Sedimentation Rate 06/22/22 R74.01 - Elevation of levels of liver transaminase levels Ferritin 06/22/22 R74.8 - Abnormal levels of other serum enzymes Gamma Glutamyl Transpeptidase 06/22/22 R74.8 - Abnormal levels of other serum enzymes Mitochondrial Antibody 06/22/22 R79.89 - Other specified abnormal findings of blood chemistry Prothrombin Time INR 06/22/22 R74.8 - Abnormal levels of other serum enzymes Liver Fibrosis Pnl 06/22/22 R74.8 - Abnormal levels of other serum enzymes Medications New bisacodyl (Dulcolax (bisacodyl)) take 2 tabs at noon the day before your colonoscopy 10 mg (2 x 5 mg) PO ONCE 1 day 2 tabs 0RF Z12.11 - Encounter for screening for malignant neoplasm of colon polyethylene glycol 3350 (Miralax) As directed by gastroenterology department at [facility] 238 grams PO ONCE 238 grams 0RF Z12.11 - Encounter for screening for malignant neoplasm of colon COLONOSCOPY Findings: Larynx:normal Esophagus: GE junction at 37 cm, diaphragm hiatus at 40 cm, 3 cm sliding hiatal hernia noted, congestion erythema and edema at GEJ with esophagitis, schatzki ring noted, Scope was passed and the ring was dilated with tear noted. UES dilated with balloon to 19 mm. Stomach: Patchy erythema. Biopsies were obtained. Grade 2 flap valve on retroflexed examination of the cardia. Duodenum: Bulbar duodenitis, bx taken Intervention: Biopsies as noted above, balloon dilation Findings: Terminal Ileum-normal Cecum:normal Ascending Colon: distal ascending colon sessile polyp noted measuring about 15 - 17 mm, raised with eleview and then removed with hot snare with x 2 ultra clips applied Transverse Colon -normal Descending Colon:normal Sigmoid Colon:moderate diverticulosis Rectum: Retroflexion with medium sized internal hemorrhoids, grade I Anorectum - normal Colon preparation: [place] Bowel Preparation Scale Right colon; 2 Transverse colon: 3 Left colon; 2 (0 = Unprepared colon segment with mucos a not seen due to solid stool that cannot be cleared. 1 = Portion of mucosa of the colon segme nt seen, but other areas of the colon segment not well seen due to staining, residual stool and/or opaque liquid. 2 = Minor amount of residual staining, s mall fragments of stool and/or opaque liquid, but mucosa of colon segment seen well. 3 = Entire mucosa of colon segment seen well with no residual staining, small fragments of stool or opaque liquid) Impression and Post Procedure Diagnosis: Endoscopy Findings: hiatal hernia esophagitis gastritis schatzki ring duodenitis Colonoscopy Findings: polyp internal hemorrhoids diverticular disease Plan: Await Pathology results Repeat Colonoscopy in 3 years due to large subtle right sided polyp, clinically appears to be serrated or earlier if clinically indicated High fiber diet leaflet avoid straining at stool, epsom salts and sitz bath, anusol supps or cream consider trial of PPI, GERd precautions PATHOLOGY: Diagnosis A. Colon, distal ascending, polypectomy: Sessile serrated lesion/polyp, no evidence of cytologic dysplasia. B. Duodenum, biopsies: Chronic nonspecific duodenitis with foveolar metaplasia; no morphologic evidence of celiac disease. C. Stomach, biopsies: Mild chronic inactive gastritis; no evidence of H. pylori, intestinal metaplasia or dysplasia. D. GE junction, biopsies: Squamoglandular junctional mucosa with intestinal metaplasia, negative for dysplasia (see comment). E. Distal esophagus, biopsies: Active esophagitis with peak intraepithelial eosinophil count of 20 per HPF; no evidence of fungal organisms, intestinal metaplasia, dysplasia or invasive carcinoma. COMMENT: (D) If the biopsy was taken from the tubular esophagus and there is endoscopic evidence of esophageal columnar metaplasia extending at least 1 cm proximal to the GE junction, then the presence of intestinal metaplasia confirms the diagnosis of Petersen?s esophagus. There is no evidence of dysplasia TODAY'S VISIT Patient is here today for follow-up and to discuss upper endoscopy and colonoscopy results. As mentioned above patient was found to have Schatzki's ring, biopsy confirms Petersen's esophagus near GE junction. Patient is not on any PPI currently will start her today. Patient reports that she has been feeling better able to swallow better after dilation. Patient reports that she is moving her bowels well we any issues. Patient denies any ill effects from the prep, anesthesia or procedure itself. Colonoscopy will be repeated in 3 years, sooner if necessary. Patient denies dyspepsia, dysphagia or odynophagia. Denies any melena, hematochezia, unintentional weight loss or ribbon like stools. [facility] Medical History No pertinent past medical history Family History Father Diabetes mellitus Colorectal cancer Mother Glioblastoma Social History Alcohol intake: current Alcohol intake frequency: does not drink Patient Tobacco Use Status: Never used Tobacco Current occupational status: employed Current occupation: insurance company Review of Systems Const Denies weight gain and Denies weight loss ENT Reports no additional complaints, Denies dysphagia and Denies odynophagia Card Reports no additional complaints Resp Reports no additional complaints GI Denies abdominal pain, Denies belching, Denies melena, Denies bloating, Denies change in bowel habits, Denies dysphagia, Denies excessive flatus, Denies dyspepsia, Denies heartburn, Denies diarrhea, Denies loose stools, Denies nausea, Denies odynophagia and Denies vomiting Reports no additional complaints Musc Reports no additional complaints Neuro Reports no additional complaints Psych Reports no additional complaints Endo Reports no additional complaints Physical Exam Vital Signs: Last Vital Signs Pulse 72 01/13/23 08:42 BP 179/79 H 01/13/23 08:42 Const General: healthy appearing, no acute distress and well developed Nutritional Appearance: well nourished Orientation/consciousness: patient oriented x3 HEENT Head: Yes normal to inspection, Yes normocephalic and Yes atraumatic Face and sinus: Yes normal facial exam Mouth: Normal oral and palatal mucosa present Throat: Yes posterior oropharynx normal, Yes tonsils normal and Yes uvula midline Eyes General: appearance normal, both eyes and all related structures Neck Neck: Yes normal visual inspection, Yes full ROM and Yes trachea midline Thyroid: Thyroid normal Resp Effort & Inspection: normal respiratory effort, able to speak in complete sentences, no tracheal deviation and symmetric chest movement Auscultation: clear to auscultation bilaterally Cardio Rate: regular rate GI Inspection: Yes normal to inspection and No distended Palpation (GI): Soft to palpation, not firm, nontender and No hepatosplenomegaly present Auscultation: normal bowel sounds General: Yes no CVA tenderness Back/Spine/Pelvis Back: no CVA tenderness Skin General skin exam: elasticity normal, turgor normal and dry skin Neuro General: patient oriented x3 Psych Appearance: grossly normal Mental Status: mental status grossly normal Affect: normal affect Assessment & Plan Assessment & Plan (1) Screen for colon cancer: Code(s): Z12.11 - Encounter for screening for malignant neoplasm of colon (2) Dysphagia: Code(s): R13.10 - Dysphagia, unspecified Qualifiers: Dysphagia type: pharyngoesophageal phase Qualified Code(s): R13.14 - Dysphagia, pharyngoesophageal phase (3) Transaminitis: Code(s): R74.01 - Elevation of levels of liver transaminase levels (4) Eosinophilic esophagitis: Code(s): K20.0 - Eosinophilic esophagitis (5) 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 Patient will be started on pantoprazole daily. Colorectal screening in 3 years, sooner if clinically necessary. Patient was encouraged to lose weight, decrease food high in fat, exercise. I will check will check alpha-fetoprotein next visit, mildly elevated most likely due to fatty liver. I will see patient in 6 months, sooner on as needed basis. Patient is agreeable to this plan and verbalizes understanding of instructions. She was given the opportunity to ask questions and all questions answered. 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
[2023-01-13 08:42] VITALS: BP 179/79; PULSE 72
== END 2023-01-13 09:13 | disposition home or self-care (01) ==
PROVIDERS: PCP Internal Medicine; Visit Provider Nurse Practitioner Family
DX: K63.5 Polyp of colon (principal); R13.14 Dysphagia, pharyngoesophageal phase; R74.01 Elevation of levels of liver transaminase levels; K20.0 Eosinophilic esophagitis; K22.70 Barrett's esophagus without dysplasia
CPT/HCPCS: 99214

== ENCOUNTER 2023-06-29 11:15 | Outpatient (REF) | payer MEDICARE, SELFPAY ==
[2023-06-29 11:19] LABS: MANUAL DIFF FLAG NO
[2023-06-29 11:24] LABS: Basophils Absolute Auto 0.1 X10*3/uL (0.0-0.2); Basophils Percent Auto 1.5 % (0-2); Eosinophils Absolute Auto 0.1 X10*3/uL (0.0-0.4); Eosinophils Percent Auto 2.5 % (0-4); Hemoglobin 13.9 g/dl (12.0-16.0); Imm Gran Abs Auto 0.01 X10*3/uL (0.00-0.03); Imm Gran Pct Auto 0.2 % (0.0-0.4); Lymphocytes Absolute Auto 2.1 X10*3/uL (1.2-4.9); Mean Corpuscular HGB Conc 33.9 g/dl (31.0-35.0); Mean Corpuscular Volume 88.6 fL (80.0-98.0); Mean Platelet Volume 10.1 fL (9.4-12.3); Monocytes Absolute Auto 0.4 X10*3/uL (0.1-1.2); Monocytes Percent Auto 7.7 % (2-11); Neutrophils Absolute Auto 2.5 x10*3/uL (2.0-8.3); Neutrophils Percent Auto 48.1 % (45-73); Platelet Count 286 X10*3/uL (160-400); Red Blood Count 4.63 X10*6/uL (4.20-5.50); Red Cell Distribution Width 13.1 % (11.0-16.0); White Blood Count 5.2 X10*3/uL (4.8-10.8)
[2023-06-29 11:25] LABS: Appearance Urine Clear; Color Urine Yellow; Glucose Urine UA Negative (Negative); Leukocyte Esterase Urine Small (1+) (Negative); Nitrite Urine Negative (Negative); PH 5.5 (5.0-9.0); Specific Gravity - Urine 1.025 (1.005-1.025); UMIC TRIGGER UA YES; Urine Blood Negative (Negative); Urine Ketones Negative (Negative); Urine Protein Negative (Neg-Trace)
[2023-06-29 11:33] LABS: Alanine Aminotransferase 89 U/L (0-31); Albumin Level 4.5 g/dL (3.5-5.0); Alkaline Phosphatase 95 U/L (39-117); Anion Gap 14 (12-20); Aspartate Amino Transferase 58 U/L (5-31); Bilirubin Total 0.9 mg/dL (0.0-1.0); Blood Urea Nitrogen 13 mg/dL (9-16); Carbon Dioxide 25 mmol/L (22-29); Chloride 108 mmol/L (96-108); Cholesterol 217 mg/dL (<200); Estimated Glomerular Filt Rate > 60; Glucose Fasting 118 mg/dL (60-99); HDL Cholesterol 46 mg/dL (>40); LDL Cholesterol Calculated 139 mg/dL (<100); Potassium 3.6 mmol/L (3.3-5.1); Sodium 143 mmol/L (135-145); Total Protein 7.5 g/dL (6.5-8.0); Triglycerides 160 mg/dL (<150)
[2023-06-29 11:35] LABS: Bacteria Urine Trace (None Seen); Hyaline Casts Urine 0-2 /LPF (0-2); RBC Urine 0-2 /HPF (0-2); WBC Urine 0-5 /HPF (0-5)
[2023-06-29 11:40] LABS: Estimated Average Glucose 120 mg/dL; Hemoglobin A1c % 5.8 % (<6.0)
[2023-06-29 11:59] LABS: Creatinine Urine 237.04 mg/dL; Microalbum/Creatinine Ratio Ur 6.3 ug/mg cr (<30)
[2023-06-29 12:32] LABS: Reflex LDLD? No
== END 2023-06-29 11:16 | disposition home or self-care (01) ==
LOC: HO.LNP 11:15
PROVIDERS: Visit Provider Internal Medicine
DX: Z00.00 Encounter for general adult medical examination without abnormal findings (principal); E83.52 Hypercalcemia; Z87.448 Personal history of other diseases of urinary system; R73.09 Other abnormal glucose; E78.00 Pure hypercholesterolemia, unspecified; M85.80 Other specified disorders of bone density and structure, unspecified site
CPT/HCPCS: 80053; 80061; 81001; 82043; 82570; 83036; 85025

== ENCOUNTER 2023-07-21 08:28 | Outpatient (AMB) | payer MEDICARE, SELFPAY ==
--- NOTE | 2023-07-21 08:41 | A.OFFVIS_ITS ---
Vital Signs 07/21/23 08:47 Height 5 ft 4 in Weight 190 lb 0.615 oz BMI 32.6 BP 156/82 H Blood Pressure Location Rt brachial Position Sitting Pulse 68 Pulse Source Pulse Oximeter Pulse Oximetry (%) 96 Oxygen Delivery Method Room Air Intake Visit Reasons: 6 month follow up Intake Note: Desirae presents in office today for a scheduled 6 mos FUV. CC: Pt did not have any new lab orders or medication orders at their last visit. Pt reports that they are doing quite well with their treatment regimen. Pt reports she just returned home from a 2 week cruise. Allergies No Known Allergies [No Known Allergies*] Allergy (Verified 07/21/23 08:47) HPI HPI 6 month follow up: Details: LAST VISIT Screen for colon cancer Dysphagia Transaminitis Eosinophilic esophagitis Petersen's esophagus determined by biopsy Plan Discussed with patient avoiding dietary triggers and late night snacking. Patient will be started on pantoprazole daily. Colorectal screening in 3 years, sooner if clinically necessary. Patient was encouraged to lose weight, decrease food high in fat, exercise. I will check will check alpha-fetoprotein next visit, mildly elevated most likely due to fatty liver. I will see patient in 6 months, sooner on as needed basis. Patient is agreeable to this plan and verbalizes understanding of instructions. She was given the opportunity to ask questions and all questions answered. ? Thank you for allowing me to participate in her care Orders Orders Rast Allergen Today K21.9 Medications New pantoprazole take one tablet half an hour before breakfast 40 mg PO DAILY 90 tabs 2RF K21.9 TODAY'S VISIT Patient is here today for follow-up. Patient reports that she has been doing quite well. Patient started taking pantoprazole daily and her symptoms went away after several weeks. In the past couple weeks patient stop taking pantoprazole as she is feeling good. Patient has no rebound symptoms. No dyspepsia, dysphagia or odynophagia. 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 Patient denies any melena, hematochezia, unintentional weight loss or ribbon like stools. Patient reports that she is moving her bowels well denies any GI concerning symptoms. Patient's liver enzymes continue to be high. No weight loss. Patient does admit that she has been taking Tylenol PM, however this would not raise her liver enzymes as much. Laboratory Tests 06/29/23 07:00 AST 58 H ALT 89 H Triglycerides 160 H Cholesterol 217 H LDL Cholesterol, Calc 139 H PFSH Medical History No pertinent past medical history Family History Father Diabetes mellitus Colorectal cancer Mother Glioblastoma Social History Alcohol intake: current Alcohol intake frequency: does not drink Patient Tobacco Use Status: Never used Tobacco Current occupational status: employed Current occupation: insurance company Review of Systems Const Denies weight gain and Denies weight loss ENT Reports no additional complaints, Denies dysphagia and Denies odynophagia Card Reports no additional complaints Resp Reports no additional complaints GI Denies abdominal pain, Denies belching, Denies melena, Denies bloating, Denies change in bowel habits, Denies dysphagia, Denies excessive flatus, Denies dyspepsia, Denies heartburn, Denies diarrhea, Denies loose stools, Denies nausea, Denies odynophagia and Denies vomiting Musc Reports no additional complaints Neuro Reports no additional complaints Psych Reports no additional complaints Endo Reports no additional complaints Physical Exam Vital Signs: Last Vital Signs Pulse 68 07/21/23 08:47 BP 156/82 H 07/21/23 08:47 Pulse Ox 96 07/21/23 08:47 Oxygen Delivery Method Room Air 07/21/23 08:47 BMI result Body Mass Index 32.6 Const General: healthy appearing and no acute distress Nutritional Appearance: obese Orientation/consciousness: patient oriented x3 Resp Effort & Inspection: normal respiratory effort, able to speak in complete sentences, no tracheal deviation and symmetric chest movement Auscultation: clear to auscultation bilaterally Cardio Rate: regular rate GI Inspection: Yes normal to inspection, No distended and Yes obesity Palpation (GI): Soft to palpation, not firm, nontender and No hepatosplenomegaly present Auscultation: normal bowel sounds General: Yes no CVA tenderness Back/Spine/Pelvis Back: no CVA tenderness Skin General skin exam: elasticity normal, turgor normal and dry skin Neuro General: patient oriented x3 Psych Appearance: grossly normal Mental Status: mental status grossly normal Assessment & Plan Assessment & Plan (1) Transaminitis: Code(s): R74.01 - Elevation of levels of liver transaminase levels (2) Eosinophilic esophagitis: Code(s): K20.0 - Eosinophilic esophagitis (3) 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 Patient was encouraged to take it every morning half an hour before breakfast. Avoid dietary triggers. Avoid gluten and dairy. Will recheck liver panel and will check liver fibrosis as well as ultrasound with elastography in 6 months. Patient was encouraged to lose weight, avoid alcohol. She will return in 6 months, sooner on as needed basis. She is agreeable to this plan and verbalizes understanding of instructions. She was given the opportunity to ask questions and all questions answered. Thank you for allowing me to participate in her care Orders: Orders Liver Panel 6 Months R74.01 - Elevation of levels of liver transaminase levels US abdomen zazueta w elastography 6 Months R74.01 - Elevation of levels of liver transaminase levels Liver Fibrosis Pnl 6 Months R74.8 - Abnormal levels of other serum enzymes Medications: Refilled pantoprazole take one tablet half an hour before breakfast 40 mg PO DAILY 90 tabs 4RF K21.9 - Gastro-esophageal reflux disease without esophagitis Coding Level of Care Code Est Pt Level 3 (30580) Diagnoses Transaminitis R74.01 Eosinophilic esophagitis K20.0 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
[2023-07-21 08:47] VITALS: BP 156/82; PULSE 68; O2SAT 96; BMI 32.6
== END 2023-07-21 09:46 | disposition home or self-care (01) ==
PROVIDERS: PCP Internal Medicine; Visit Provider Nurse Practitioner Family
DX: R74.01 Elevation of levels of liver transaminase levels (principal); K20.0 Eosinophilic esophagitis; K22.70 Barrett's esophagus without dysplasia; K76.0 Fatty (change of) liver, not elsewhere classified; Z80.0 Family history of malignant neoplasm of digestive organs
CPT/HCPCS: 99213

== ENCOUNTER → 2023-07-21 08:28 | Outpatient (BNVA) | payer MEDICARE, SELFPAY | PROVIDERS: PCP Internal Medicine; Visit Provider Nurse Practitioner Family | DX: R74.01 Elevation of levels of liver transaminase levels (principal); K20.0 Eosinophilic esophagitis; K22.70 Barrett's esophagus without dysplasia; K76.0 Fatty (change of) liver, not elsewhere classified; Z79.899 Other long term (current) drug therapy; Z80.0 Family history of malignant neoplasm of digestive organs | CPT/HCPCS: 99212 ==

== ENCOUNTER 2024-01-09 07:49 | Outpatient (REF) | payer MEDICARE, SELFPAY | END 2024-01-09 07:50 | disposition home or self-care (01) | LOC: HO.US 07:49 | PROVIDERS: PCP Internal Medicine; Visit Provider Nurse Practitioner Family | DX: R74.01 Elevation of levels of liver transaminase levels (principal) | CPT/HCPCS: 76705; 76981 ==

== ENCOUNTER → 2024-01-09 07:49 | Outpatient (BNV) | payer MEDICARE, SELFPAY | PROVIDERS: PCP Internal Medicine; Visit Provider Radiology Diagnostic Radiology | DX: R74.01 Elevation of levels of liver transaminase levels (principal) | CPT/HCPCS: 76705 ==

== ENCOUNTER 2024-07-15 14:15 | Outpatient (REF) | payer MEDICARE, SELFPAY ==
--- NOTE | ~2024-07-15 | CT_ITS ---
EXAMINATION: CT ABDOMEN AND PELVIS WITHOUT AND WITH CONTRAST CLINICAL INFORMATION: Cysts of the kidneys COMPARISON: 04/15/2022 ultrasound TECHNIQUE: Multidetector volumetric imaging was performed of the abdomen and pelvis before and after the IV administration of 85 mL of Omnipaque 300 intravenous contrast. Sagittal and coronal reformatted images were obtained on the technologist's workstation. This CT examination was performed using dose optimization techniques as appropriate, variously including the following: *Automated exposure control *Adjustment of mA and/or kV according to patient size (this includes techniques or standardized protocols for targeted exams where dose is matched to indication/reason for exam; i.e. extremities or head) *Use of iterative reconstruction technique DLP: 742 mGY*cm FINDINGS: LUNG BASES: The visualized lung bases are unremarkable. LIVER, GALLBLADDER, AND BILIARY TREE: Diffuse fatty changes are present throughout the liver. Calcified stones are present in the gallbladder. Gallbladder and extrahepatic bile duct is otherwise unremarkable. PANCREAS: Unremarkable SPLEEN: There is a 9 mm hypoattenuating lesion in the anterior spleen with coarse calcification along the medial and posterior wall consistent with a benign chronic cyst or pseudocyst. ADRENAL GLANDS: There is a left adrenal gland nodule measuring 6 x 16 mm and -6 Hounsfield units diagnostic of a benign lipid rich adrenal adenoma. The right adrenal gland is unremarkable. KIDNEYS AND URETERS: There is a 13 mm lesion in the lateral lower right kidney. On noncontrast imaging it measure between 48-55 Hounsfield units. On post contrast imaging it measured 53 Hounsfield units. There is a second smaller minimally exophytic lesion in the posterolateral mid to upper right kidney measuring 9 mm diameter. On unenhanced exam it measured 40 Hounsfield units. After contrast, it measured 69 Hounsfield units. There is cortical scarring in the mid left kidney, laterally. The kidneys are otherwise unremarkable. Unenhanced scan demonstrates no kidney stones or hydronephrosis. BLADDER: Unremarkable GASTROINTESTINAL TRACT: The small and large bowel are unremarkable. The appendix is unremarkable. ABDOMINAL WALL: No significant hernia is appreciated. LYMPH NODES: Normal VASCULAR: Minimal the multifocal atherosclerotic calcifications are present between the aorta and femoral arteries. PELVIC VISCERA: There is an enlarged lobulated uterus with coarse calcifications most consistent with fibroid uterus. There is no ascites or adenopathy to suggest malignancy. OSSEOUS STRUCTURES: Disc space narrowing and vacuum phenomena is noted at L3-4 and L5-S1. There is also endplate sclerosis and degenerative cystic change. Severe degenerative changes are also evident at the pubic symphysis joint and moderate degenerative change of the SI joints. CT/CT abdomen pelvis wo/w IV con IMPRESSION: There are 2 hyperdense lesions in the kidneys. The more superior lesion is too small to characterize. There is apparent enhancement, but this could be related to volume averaging. Consider right renal ultrasounds to determine if the lesion is cystic. If the lesion is cystic, then it is benign. The lesion is solid and renal cell carcinoma is a possibility. The second hyperdense lesion lower in the right kidney demonstrates no enhancement consistent with hyperdense cyst, a cyst containing proteinaceous debris, warranting no further follow-up. Fatty liver Cholelithiasis. Benign lipid rich left adrenal adenoma. Chronic appearing pseudocyst or cyst in the anterior left spleen requiring no further follow-up. Fleischner guidelines were followed. Electronically signed by: Raudel Bay MD 07/15/2024 03:57 PM EDT
[2024-07-15] MEDS: iohexoL 350 MG/ML 100 ML INFUS..BTL 85 ML IV (14:52)
[2024-07-15 14:57] LABS: Creatinine POC 0.9 mg/dL (0.5-1.4); GFR POC > 60
--- OUTSIDE RECORDS SUMMARY | 2024-07-15 16:13 | XMS_ITS ---
Author Organization Josue Mcconnell MD Address [address] [place] [phone] Care Team Providers Care Wind Plant Manager Name Role Phone Josue Mcconnell Primary Care Provider Reason For Referral Reason tubular adenoma Diagnosis 1 Tubular adenoma (D36 .9) Referral Organization Josue Mcconnell MD Referring Provider First Name Josue Referring Provider Last Name Jayesh Referring Provider Speciality Internal M edicine Referred Provider CHAZ PINA Referred Provider Specialty Gastroentero logy General Notes Dayanara Riggs 0 07/11/2024 10:13:06 AM >info faxed Referral Priority Routine REASON FOR VISIT comp visit Medications Medication [...] kg/m2 07/11/2024 weight is down 3 pounds [facility] 12-29-23 Encounters Encounter Location Date Provider Diagnosis Josue Mcconnell MD [address] [place] [address] [place] [phone] 07/11/2024 Josue Mcconnell Motion sickness, subsequent encounter [...] Referral Date Details 07/11/2024 07/11/2024, tubular adenoma, [facility]AZ PINA Next Appt Details Follow Up: 6 Months, Reason: Provider Name:Josue Aiden Celina ier, 01/09/2025 08:15:00 AM, [address], [address], [place], [phone], Provider Name:Josue Patrick matthewr, 01/16/2025 10:15:00 AM, [address], [address], [place], [place], [phone], Provider Name:Josue Aiden Celina ier, 07/10/2025 07:30:00 AM, [address], [address], [place], [place], [phone], Provider Name:Josue Wolfe Celina castror, 07/17/2025 08:30:00 AM, [address], [address], [place], [phone], Progress Notes * Desirae MORALES ADOB:1950 (73 yo F)Acc No.[id number]:07/11/2024 Patient:?Desirae MORALES Provider:?Josue Mcconnell MD :1950???Age:73 Y???Sex:Female D ate:07/11/2024 Address:[address] [place], [place] [phone] Subjective: * Chief Complaints: * ???1. Comp visit. * HPI: ???Depression Screening:?PHQ-9?Little interest or pleasure in doing things?Not at all,?Feeling down, depressed, or hopeless?Not at all,?Trouble falling or staying asleep, or sleeping too much?Not at all,?Feeling tired or having little energy?Not at all,?Poor appetite or overeating?Not at all,?Feeling bad about yourself or that you are a failure, or have let yourself or your family down?Not at all,?Trouble concentrating on things, such as reading the newspaper or watching television?Not at all,?Moving or speaking so slowly that other people could have noticed; or the opposite, being so fidgety or restless that you have been moving around a lot more than usual?Not at all,?Thoughts that you would be better off or of hurting yourself in some way?Not at all,?Total Score?0.?Interpretation and Intervention?Depression Screening Findings?Negative,?Follow-Up for Depression?: review of PHQ-9 found negative result, no follow-up needed.?Communication Needs:?Communication Needs?Does the patient have a hearing impairment?No,?Does the patient have a vision impairment??Yes,?If yes, what is the vision impairment??Glasses,?Does the patient have a cognition impairment??No.?Fall Risk:?History?Have you had any falls with injury in the past year??No,?Have you had two or more falls in the past year??No.?SDOH Questions:?SDOH Questions?In the past year have you been worried about losing housing??No,?In the past year have you or any family members you live with been unable to get any of the following when it was really needed? Check all that apply:?None.?Symptom(s):? patient is a 73 yo female here for annual visit with review of recent labs and follow up of chronic issues. * ROS:?General/Constitutional:?Change in appetite?denies.?Chills?denies.?Fever?denies.?Ophthalmologic:?Blurred vision?denies.?Discharge?denies.?Pain?denies.?ENT:?Decreased hearing?denies.?Sore throat?denies.?Swollen glands?denies.?Endocrine:?Cold intolerance?denies.?Excessive thirst?denies.?Heat intolerance?denies.?Weight loss?denies.?Respiratory:?Cough?denies.?Shortness of breath at rest?denies.?Shortness of breath with exertion?denies.?Wheezing?denies.?Cardiovascular:?Chest pain at rest?denies.?Chest pain with exertion?denies.?Irregular heartbeat?denies.?Shortness of breath?denies.?Gastrointestinal:?Abdominal pain?denies.?Change in bowel habits?denies.?Diarrhea?denies.?Nausea?denies.?Rectal bleeding?denies.?Vomiting?denies .?Genitourinary:?Blood in urine?denies.?Difficulty urinating?denies.?Frequent urination?denies.?Urinary incontinence?Denies.?Musculoskeletal:?Painful joints?denies.?Weakness?denies.?Skin:?Dry skin?denies.?Itching?denies.?Denies?Mole(s),? changes in moles, new moles or any lesions of concern.?Denies?Photosensitivity.?Rash?denies.?Neurologic:?Dizziness?denies.?Fainting?denies.?Headache?denies.? * Medical History:?colonoscopy 2008 due in 5 to 7 yrs; colonoscopy done with Dr Donnelly 06/30/16 (repeat 5 yrs), Had hematuria work up in 1999, Colonoscopy and endoscopy 2022 repeat in 2o26. * Family History:?Father: dece ased 53 yrs, diagnosed with Cancer.?Mother: 80 yrs, diagnosed with Cancer.?2 brother(s) . 2 daughter(s) . .? Father - Colon Cancer Mother Brain Cancer, Denies mental health/substance abuse family history, Denies mental health/substance abuse family history, Denies mental health/substance abuse family history. * Social History:?Tobacco Use:?Tobacco Use/Smoking?Patient is a?nonsmoker,?Additional Findings: Tobacco Non-User?Current non-smoker, currently using no form of tobacco.?Drugs/Alcohol:?Alcohol Screen?Did you have a drink containing alcohol in the past year??Yes,?How often did you have a drink containing alcohol in the past year??Monthly or less (1 point),?How many drinks did you have on a typical day when you were drinking in the past year??1 or 2 drinks (0 point),?How often did you have 6 or more drinks on one occasion in the past year??Never (0 point),?Points?1,?Interpretation?Negative.?Miscellaneous:?Caffeine: yes, frequency:, 1 Cup a day trying to have decaff instead. Children: yes. Community involvements: yes. Exercise: yes, 1-2 times per week treadmill for 30 minutes. Home smoke detector use: yes. Housing: owning. Living with: alone. Marital status: . Occupation: works full-time. Pets: none. Travel outside of the [place]: no. * Medications:?Not-Taking/PRN Pantoprazole Sodium 40 MG Tablet Delayed Release 1 tablet Orally Once a day , Not-Taking/PRN Scopolamine 1 MG/3DAYS Patch 72 Hour 1 patch to skin behind the ear as needed Transdermal every 3 days , Not-Taking/PRN Ibuprofen 800 MG Tablet 1 tablet Orally Three times a day , Medication List reviewed and reconciled with the patient Objective: * Vitals:?Ht: 65, Wt: 190, BMI :31.61, BP:162/76, Repeat BP:150/80, Wt-k.18. weight is down 3 pounds since 12-29-23. * ???Past Orders: ???Lab:URINALYSIS REFLEX (Or jackson Date - 07/08/2024) (Collection Date & Time - 07/08/2024 09:38 AM) ? Value Reference Range ?GLUCOSE NEGATIVE NEGATIVE - ?COLOR YELLOW YELLOW - ?APPEARANCE CLEAR CLEAR - ?BILIRUBIN NEGATIVE NEGATIVE - ?KETONES NEGATIVE NEGATIVE - ?SPECIFIC GRAVITY 1.018 1.0 01-1.035 - ?OCCULT BLOOD NEGATIVE NEGATIV E - ?PH < OR = 5.0 A 5.0-8.0 - ?PROTEIN NEGATIVE NEGATIVE - ?NITRITE NEGATIVE NEGATIVE - ?LEUKOCYTE ESTERASE NEGATIVE N EGATIVE - ???Lab:HEMOGLOBIN A1c (Order - 07/08/2024) (Collection Date & Time - 07/08/2024 09:38 AM) ? Value Reference Range ?HEMOGLOBIN A1c 6.2 H <5.7 - % ???Lab:MICROALBUMIN, RANDOM URINE (W/CREATININE) (Order Date - 07/08/2024) (Collection Date & Time - 07/08/2024 09:38 AM) ? Value Reference Range ?CREATININE, RANDOM URINE 111 20-275 - mg/dL ?MICROALBUMIN 0.9 See Not e: - mg/dL ?MICROALBUMIN/CREATIN INE$RA VIVEK, RANDOM URINE 8 <30 - mg/g creat ???Lab:LIPID PANEL (Order Da te 07/08/2024) (Collection Date & Time - 07/08/2024 09:38 AM) ? Value Reference Range ?NON-HDL CHOLESTEROL 174 H <130 - mg/dL (calc) ?TRIGLYCERIDES 206 H <150 - mg/dL ?CHOLESTEROL, TOTAL 225 H < 200 - mg/dL ?HDL CHOLESTEROL 51 > OR = 50 - mg/dL ?LDL-CHOLESTEROL 140 H - mg /dL (calc) ?CHOL/HDLC RATIO 4.4 <5.0 - (calc) ???Lab:COMPREHENSIVE METABOL IC PANEL (Order 07/08/2024) (Collection Date & Time - 07/08/2024 09:38 AM) ? Value Reference Range ?CALCIUM 9.9 8.6-10.4 - m g/dL ?CARBON DIOXIDE 23 20-32 - mmol/L ?PROTEIN, TOTAL 7.6 6.1-8 .1 - g/dL ?UREA NITROGEN (BUN) 14 7-25 - mg/dL ?ALBUMIN 4.5 3.6-5.1 - g/ dL ?CREATININE 0.74 0.60-1.00 - mg/dL ?GLOBULIN 3.1 1.9-3.7 - g /dL (calc) ?ALBUMIN/GLOBULIN RATIO 1.5 1.0-2.5 - (calc) ?BILIRUBIN, TOTAL 0.8 0.2 -1.2 - mg/dL ?BUN/CREATININE RATIO SEE NOTE: 6-22 - (calc) ?ALKALINE PHOSPHATASE 102 37-153 - U/L ?SODIUM 137 135-146 - mmo l/L ?AST 34 10-35 - U/L ?ALT 45 H 6-29 - U/L ?POTASSIUM 4.3 3.5-5.3 - mmol/L ?CHLORIDE 104 98-110 - mm ol/L ?GLUCOSE 119 H 65-99 - mg/d L ?EGFR 86 > OR = 60 - mL/min/1.73m2 ???Lab:CBC (INCLUDES DIFF/PL T) (Order Date - 07/08/2024) (Collection Date & Time - 07/08/2024 09:38 AM) ? Value Reference Range ?WHITE BLOOD CELL COUNT 6.3 3.8-10.8 - Thousand/uL ?ABSOLUTE NEUTROPHILS 3270 2985-2693 - cells/uL ?RED BLOOD CELL COUNT 4.71 3.80-5.10 - Million/uL ?HEMOGLOBIN 14.2 11.7-15.5 - g/dL ?HEMATOCRIT 42.4 35.0-45.0 - % ?MCV 90.0 80.0-100.0 - fL ?MCH 30.1 27.0-33.0 - pg ?MCHC 33.5 32.0-36.0 - g/d L ?PLATELET COUNT 294 140-4 00 - Thousand/uL ?RDW 13.1 11.0-15.0 - % ?NEUTROPHILS 51.9 - % ?LYMPHOCYTES 37.1 - % ?MONOCYTES 6.3 - % ?EOSINOPHILS 3.0 - % ?BASOPHILS 1.7 - % ?ABSOLUTE LYMPHOCYTES 2337 850-3900 - cells/uL ?ABSOLUTE MONOCYTES 397 2 00-950 - cells/uL ?ABSOLUTE EOSINOPHILS 189 15-500 - cells/uL ?ABSOLUTE BASOPHILS 107 0 -200 - cells/uL ?MPV 9.8 7.5-12.5 - fL * Examination: ???General Examination: ?GENERAL APPEARANCE:?well developed, well nourished, in no acute distress.?HEAD:?normocephalic, atraumatic.?EYES:?pupils equal, round, reactive to light and accommodation, sclera non-icteric.?EARS:?normal.?ORAL CAVITY:?mucosa moist.?THROAT:?clear.?NECK/THYROID:?neck supple, full range of motion, no cervical lymphadenopathy, no bruits.?SKIN:?warm and dry, no suspicious lesions.?HEART:?regular rate and rhythm, S1, S2 normal, no murmurs.?LUNGS:?clear to auscultation bilaterally.?BREASTS:?done by plastic mould maker.?ABDOMEN:?soft, nontender, nondistended, bowel sounds present, normal, no organomegaly , no masses palpable.?RECTAL EXAM:?done by plastic mould maker.?FEMALE GENITOURINARY:?done by plastic mould maker.?EXTREMITIES:?no clubbing, cyanosis, or edema.?NEUROLOGIC:?nonfocal, motor strength normal upper and lower extremities, sensory exam intact.? Assessment: * Assessment: 1.?Motion sickness, subseque nt encounter - T75.3XXD (Primary)???2.?Prediabetes - R73.09???3.?Tubular adenoma - D36.9???4.?BATISTA (nonalcoholic steatohepatitis) - K75.81??? Plan: * Treatment: 2.?Tubular adenoma? Notes: needs colonoscopy next year? Referral To:CHAZ PINA??Gastroenterology ?Reason:tubular adenoma 3.?Others? Refill Scopolamine Patch 72 Hour, 1 MG/3DAYS, 1 patch to skin behind the ear as needed, Transdermal, every 3 days, 14 days, 7, Refills 2.?? * Follow Up:?6 Months * * The named appointment provid er may or may not be the originator of this progress note, and it is not deemed complete until electronically signed by the appointment provider. Sign off status: Pending * Provider:?Josue Mcconnell MD Date:?0 07/11/2024 Generated for Cielo james/Belinda/Gwynsmitting on:?07/15/2024 04:12 PM EDT History and Physical Notes * [...] patient have a vision impairmen t?: Yes ?If yes, what is the vision impairment?: Glasses Does the patient have a cognition impair ment?: No Examination Category Sub-Category Detail Notes Category Not es General Examination GENERAL APPEARANCE: well dev eloped, well nourished, in no acute distress HEAD: normocephalic, atrau matic EYES: pupils equal, round, reactive to light and accommodation, sclera non- icteric EARS: normal THROAT: clear NECK/THYROID: neck supple, [...] cyanosi s, or edema BREASTS: done by plastic mould maker RECTAL EXAM: done by plastic mould maker FEMALE GENITOURINARY: done by plastic mould maker ORAL CAVITY: mucosa moist Consultation Request Notes Referral Date Referring Provider Referred Provider Not es 07/11/2024 Josue Mcconnell, [facility] pierre denoma
== END 2024-07-15 14:16 | disposition home or self-care (01) ==
LOC: HO.CT 14:15
PROVIDERS: PCP Internal Medicine; Visit Provider Internal Medicine
DX: N28.1 Cyst of kidney, acquired (principal)
CPT/HCPCS: 74178; 82565; Q9967

== ENCOUNTER → 2024-07-15 14:17 | Outpatient (BNV) | payer MEDICARE, SELFPAY | PROVIDERS: PCP Internal Medicine; Visit Provider Radiology Diagnostic Radiology | DX: N28.89 Other specified disorders of kidney and ureter (principal) | CPT/HCPCS: 74178 ==

== ENCOUNTER 2024-08-14 14:47 | Outpatient (AMB) | payer MEDICARE, SELFPAY ==
--- OUTSIDE RECORDS SUMMARY | 2024-04-30 08:55 | XMS_ITS | Continuity of Care Document ---
Author Organization [facility] Address [address] [place] [id number] Phone Care Team Providers Care Frame Runner Name Role Phone Estee OD, Obdulia Unavailable Unavailable Allergies, Adverse Reactions, Alerts Substance Reaction Status Criticality No Known Allergies Active No Inform ation Procedures Procedure Date Refraction Eye exam new comprehensive Advance Directives Directive Yes / No Effective Date File Name No Information Encounters Encounter Description Practice Location Reason(s) For Visit Diagnoses Date Provider Providers Copied on Encounter [facility], [address] [place] [address], [id number], [place] tel:[phone] ECOF Lenore blurry vision (chief complaint) Age-related nuclear cataract, bilateralPr esbyopiaMyo fransico, bilateral Estee Obdulia. [address] [place] [address], [id number], [place]. tel:[phone] Referring Provider: Obdulia Fontanez, [address] [place] [address], [id number]. tel:[phone] Family History Family Member Type Diagnosis Age At Onset Mother Problem Glaucoma Problem No family history of Blindne ss Problem No family history of Macular degeneration Immunizations Vaccine Date Status Comments pneumococcal polysaccharide vaccine, 23 valent administered Source: Other Provid er Zoster administered Source: Other P rovider Flu (split) (3 yrs or older) administered Source: Other Provider Payers Payer name Insurance type Covered libertarian ID Authoriza tion(s) Medicare Traditional MB [id number] BCBS Comm PPO BL [id number] Social History Type Description Quantity Date Captured Comments Alcohol Use Details Caffeine Use Details coffee Tobacco Use Status Current non-smoker Smoking Status Never smoker Non-Smoking Tobacco Use Details : No Details Available : No Details Available Sex Female Chief Complaint And Reason For Visit From encounter dated '04/30/2024 12:55'. blurry vision (chief complaint). Description: The 73 year old patient presents for evaluation of blurry vision in the [facility]. SHON 2-3 years ago. Pt reports sometimes she doesn't feel like she sees as well with her current glasses. She wants to get new glasses today. No tearing, burning, itching, irritation or redness. No floaters or flashes of light. Reason For Referral Reason For Referral No Information History Of Present Illness Encounter Date Complaint History Of Prese nt Illness blurry vision The 73 year old patient presents for evaluation of blurry vision in the [facility]. SHON 2-3 years ago. Pt reports sometimes she doesn't feel like she sees as well with her current glasses. She wants to get new glasses today. No tearing, burning, itching, irritation or redness. No floaters or flashes of light. Functional Status Date Functional Assessmen t No Information Instructions Date Instruction Additional Infor roxana Return to clinic in 1 year for a complete exam Related to Age-related nuclear cataract, bilateral Impression/Plan Related to Age-r elated nuclear cataract, bilateral Impression/Plan Related to Presb yopia Impression/Plan Related to Myopi a, bilateral Assessments Type Assessment Date assessment Age-related nuclear cataract, bi lateral assessment Presbyopia impression Age-related nuclear cataract, bi lateral: H25.13 impression Presbyopia: H52.4 assessment Myopia, bilateral impression Myopia, bilateral: H52.13 Patient Care Teams Name Effective Dates (start - stop) Status Members No Information
--- OUTSIDE RECORDS SUMMARY | 2024-07-11 05:30 | XMS_ITS ---
Author Organization Josue Mcconnell MD Address [address] [place] [phone] Care Team Providers Care Circuitry Negative Inspector Name Role Phone Josue Mcconnell Primary Care Provider Reason For Referral Reason tubular adenoma Diagnosis 1 Tubular adenoma (D36 .9) Referral Organization Josue Mcconnell MD Referring Provider First Name Josue Referring Provider Last Name Jayesh Referring Provider Speciality Internal M edicine Referred Provider SASCHA SOLANO Referred Provider Specialty Gastroentero logy General Notes Dayanara Riggs 0 07/11/2024 10:13:06 AM >info faxedOneil Annette 07/19/2024 09:40:39 AM >patient is aware of appt Referral Priority Routine Referral Appointment Date 08/14/2024 REASON FOR VISIT comp visit Medications Medication SIG (Take, Route, Frequency, Duration) Notes Start Date End Date Status Ibuprofen 800 MG 1 tablet Orally Thre e times a day for 30 day(s) 04/21/2015 Not-Taking Pantoprazole Sodium 40 MG 1 tablet Orall y Once a day for 30 day(s) Not-Taking Scopolamine 1 MG/3DAYS 1 patch to skin b ehind the ear as needed Transdermal every 3 days for 14 days 06/19/2023 Active Social History Tobacco Use: Social History Observation Description Date Details (start date - stop date) Never Smoker NA - NA Tobacco Use/Smoking Question Answer Notes Patient is a nonsmoker Additional Findings: Tobacco Non-User Cu rrent non-smoker, currently using no form of tobacco Alcohol Screen Question Answer Notes Did you have a drink contain ing alcohol in the past year? Yes How often did you have a dri nk containing alcohol in the past year? Monthly or less (1 point) How many drinks did you have on a typical day when you were drinking in the past year? 1 or 2 drinks (0 point) How often did you have 6 or more drinks on one occasion in the past year? Never (0 point) Points 1 Interpretation Negative Vital Signs Blood pressure systolic 162 mm Hg 07/12/19 25 Blood pressure diastolic 76 mm Hg 025 Height 65 in 07/11/2024 Weight 190 lbs 07/11/2024 BMI 31.61 kg/m2 07/11/2024 weight is down 3 pounds [facility] 12-29-23 Encounters Encounter Location Date Provider Diagnosis Josue Mcconnell MD [address] [place] [address] [place] [phone] 07/11/2024 Josue Mcconnell Motion sickness, subsequent encounter T75.3XXD ; Prediabetes R73.09 ; Tubular adenoma D36.9 and BATISTA (nonalcoholic steatohepatitis) K75.81 Assessments Encounter Date Diagnosis (ICD Code) Assessment Notes Treatment Notes Treatment Clinical Notes Section Notes 07/11/2024 Motion sickness, subsequent encounter (ICD-10 - T75.3XXD) 07/11/2024 Prediabetes (ICD-10 - R73.09) needs to diet 07/11/2024 Tubular adenoma (ICD-10 - D36.9) needs colonoscopy next year 07/11/2024 BATISTA (nonalcoholic steatohepatitis) (ICD-10 - K75.81) Plan Of Treatment Medication Medication Name Sig Start Date Stop Date Notes Scopolamine 1 MG/3DAYS 1 patch to skin b ehind the ear as needed Transdermal every 3 days for 14 days 06/19/2023 Treatment Notes Assessment Notes Prediabetes needs to diet Tubular adenoma needs colonoscopy ne xt year Referrals Referral Date Details 07/11/2024 07/11/2024, tubular adenoma, SASCHA RUSS Next Appt Details Follow Up: 6 Months, Reason: Provider Name:Josue Aiden Celina castror, 01/09/2025 08:15:00 AM, [address], [place], [place], [phone], Provider Name:Josue Patrick ier, 01/16/2025 10:15:00 AM, [address], [place], [place], [phone], Provider Name:Josue Patrick ier, 07/10/2025 07:30:00 AM, [address] [place] [address], Suite [facility], [place], [place], [phone], Provider Name:Josue Aiden Celina castror, 07/17/2025 08:30:00 AM, [address] [place] [address], Suite [facility], [place], [place], [phone], Progress Notes * Desirae MORALES ADOB:1950 (73 yo F)Acc No.[id number]:07/11/2024 Patient: Carmelo ANJUMDesirae HENAO Provider: Rufus Mcconnell MD :1950 A ge:73 Y S ex:Female Date:07/11/2024 Address:[address] [place] [address], [id number] Subjective: * Chief Complaints: * C omp visit * HPI: D epression Screening: PHQ-9 L ittle interest or pleasure in doing things N ot at all, F eeling down, depressed, or hopeless N ot at all, T rouble falling or staying asleep, or sleeping too much N ot at all, F eeling tired or having little energy N ot at all, P oor appetite or overeating N ot at all, F eeling bad about yourself or that you are a failure, or have let yourself or your family down N ot at all, T rouble concentrating on things, such as reading the newspaper or watching television N ot at all, M oving or speaking so slowly that other people could have noticed; or the opposite, being so fidgety or restless that you have been moving around a lot more than usual N ot at all, T houghts that you would be better off or of hurting yourself in some way N ot at all, T otal Score 0 . I nterpretation and Intervention D epression Screening Findings N egative, F ollow-Up for Depression : review of PHQ-9 found negative result, no follow-up needed. C ommunication Needs: Communication Needs D oes the patient have a hearing impairment N o, D oes the patient have a vision impairment? Y es, I f yes, what is the vision impairment? G lasses, D oes the patient have a cognition impairment? N o. F all Risk: History H ave you had any falls with injury in the past year? N o, H ave you had two or more falls in the past year? N o. S NICKOLAS Questions: SDOH Questions I n the past year have you been worried about losing housing? N o, I n the past year have you or any family members you live with been unable to get any of the following when it was really needed? Check all that apply: N one. S ymptom(s): patient is a 73 yo female here for annual visit with review of recent labs and follow up of chronic issues. * ROS: G eneral/Constitutional: Change in appetite d enies. C hills d enies. F ever d enies. O phthalmologic: Blurred vision d enies. D ischarge d enies. P ain d enies. E NT: Decreased hearing d enies. S ore throat d enies.?Swollen glands d enies. E ndocrine: Cold intolerance d enies. E xcessive thirst d enies. H eat intolerance d enies. W eight loss d enies. R espiratory: Cough d enies. S hortness of breath at rest d enies. S hortness of breath with exertion d enies. W heezing d enies. C ardiovascular: Chest pain at rest d enies. C hest pain with exertion?denies. I rregular heartbeat d enies. S hortness of breath d enies. ? G astrointestinal: Abdominal pain d enies. C hange in bowel habits d enies. D iarrhea d enies. N ausea d enies. R ectal bleeding d enies. V omiting d enies . G enitourinary: Blood in urine d enies. D ifficulty urinating d enies. F requent urination d enies. U rinary incontinence D enies. M usculoskeletal: Painful joints d enies. W eakness d enies. ? S kin: Dry skin d enies. I tching d enies. D enies?Mole(s), changes in moles, new moles or any lesions of concern. D enies P hotosensitivity. R jeanine d enies. N eurologic: Dizziness d enies. F ainting d enies. H eadache?denies. * Medical History: * Surgical History: * Hospitalization/Major Diagno stic Procedure: * Family History: F ather: 53 yrs, diagnosed with Cancer. M other: 80 yrs, diagnosed with Cancer. 2 brother(s) . 2 daughter(s) . . Father - Colon Cancer Mother Brain Cancer, Denies mental health/substance abuse family history, Denies mental health/substance abuse family history, Denies mental health/substance abuse family history. * Social History: T obacco Use: T obacco Use/Smoking P atient is a n onsmoker, A dditional Findings: Tobacco Non-User C urrent non-smoker, currently using no form of tobacco. D rugs/Alcohol: A lcohol Screen D id you have a drink containing alcohol in the past year? Y es, H ow often did you have a drink containing alcohol in the past year? M onthly or less (1 point), H ow many drinks did you have on a typical day when you were drinking in the past year? 1 or 2 drinks (0 point), H ow often did you have 6 or more drinks on one occasion in the past year? N ever (0 point), P oints 1 , I nterpretation N egative. M iscellaneous: C affeine: yes, frequency:, 1 Cup a day trying to have decaff instead. Children: yes. Community involvements: yes. Exercise: yes, 1-2 times per week treadmill for 30 minutes. Home smoke detector use: yes. Housing: owning. Living with: alone. Marital status: . Occupation: works full-time. Pets: none. Travel outside of the [place]: no. * Medications: N ot-Taking/PRNPantoprazole Sodium 40 MG Tablet Delayed Release 1 tablet Orally Once a day Scopolamine 1 MG/3DAYS Patch 72 Hour 1 patch to skin behind the ear as needed Transdermal every 3 days Ibuprofen 800 MG Tablet 1 tablet Orally Three times a day Medication List reviewed and reconciled with the patientNot-Taking/PRN Pantoprazole Sodium 40 MG Tablet Delayed Release 1 tablet Orally Once a day Not-Taking/PRN Scopolamine 1 MG/3DAYS Patch 72 Hour 1 patch to skin behind the ear as needed Transdermal every 3 days Not-Taking/PRN Ibuprofen 800 MG Tablet 1 tablet Orally Three times a day Medication List reviewed and reconciled with the patient * Allergies: y es[Allergies Verified] Objective: * Vitals: H t: 65, Wt: 190, BMI:31.61, BP:162/76, Repeat BP:150/80, Wt-k.18. weight is down 3 pounds since 12-29-23. * P ast Orders: L ab:URINALYSIS REFLEX (Order Date - 07/08/2024) (Collection Date & Time - 07/08/2024 09:38 AM) Value Reference Range GLUCOSE NEGATIVE NEGATIVE - COLOR YELLOW YELLOW - APPEARANCE CLEAR CLEAR - BILIRUBIN NEGATIVE NEGATIVE - KETONES NEGATIVE NEGATIVE - SPECIFIC GRAVITY 1.018 1.001-1.035 - OCCULT BLOOD NEGATIVE NEGATIVE - PH < OR = 5.0 A 5.0-8.0 - PROTEIN NEGATIVE NEGATIVE - NITRITE NEGATIVE NEGATIVE - LEUKOCYTE ESTERASE NEGATIVE NEGATIVE - L ab:HEMOGLOBIN A1c (Order Date - 07/08/2024) (Collection Date & Time - 07/08/2024 09:38 AM) Value Reference Range HEMOGLOBIN A1c 6.2 H <5.7 - % L ab:MICROALBUMIN, RANDOM URINE (W/CREATININE) (Order Date - 07/08/2024) (Collection Date & Time - 07/08/2024 09:38 AM) Value Reference Range CREATININE, RANDOM URINE 111 20-275 - mg/dL MICROALBUMIN 0.9 See Note: - mg/dL MICROALBUMIN/CREATININE$RATIO, RANDOM URINE 8 <30 - mg/g creat L ab:LIPID PANEL (Order Date - 07/08/2024) (Collection Date & Time - 07/08/2024 09:38 AM) Value Reference Range NON-HDL CHOLESTEROL 174 H <130 - mg/dL (calc) TRIGLYCERIDES 206 H <150 - mg/dL CHOLESTEROL, TOTAL 225 H <200 - mg/dL HDL CHOLESTEROL 51 > OR = 50 - mg/dL LDL-CHOLESTEROL 140 H - mg/dL (calc) CHOL/HDLC RATIO 4.4 <5.0 - (calc) L ab:COMPREHENSIVE METABOLIC PANEL (Order Date - 07/08/2024) (Collection Date & Time - 07/08/2024 09:38 AM) Value Reference Range CALCIUM 9.9 8.6-10.4 - mg/dL CARBON DIOXIDE 23 20-32 - mmol/L PROTEIN, TOTAL 7.6 6.1-8.1 - g/dL UREA NITROGEN (BUN) 14 7-25 - mg/dL ALBUMIN 4.5 3.6-5.1 - g/dL CREATININE 0.74 0.60-1.00 - mg/dL GLOBULIN 3.1 1.9-3.7 - g/dL (calc ) ALBUMIN/GLOBULIN RATIO 1.5 1.0-2.5 - (calc) BILIRUBIN, TOTAL 0.8 0.2-1.2 - mg/dL BUN/CREATININE RATIO SEE NOTE: 07-28 - (calc) ALKALINE PHOSPHATASE 102 37-153 - U/L SODIUM 137 135-146 - mmol/L AST 34 10-35 - U/L ALT 45 H 6-29 - U/L POTASSIUM 4.3 3.5-5.3 - mmol/L CHLORIDE 104 98-110 - mmol/L GLUCOSE 119 H 65-99 - mg/dL EGFR 86 > OR = 60 - mL/min/1.73m2 L ab:CBC (INCLUDES DIFF/PLT) (Order Date - 07/08/2024) (Collection Date & Time - 07/08/2024 09:38 AM) Value Reference Range WHITE BLOOD CELL COUNT 6.3 3.8-10.8 - Thousa nd/uL ABSOLUTE NEUTROPHILS 3270 [id number] - cells/u L RED BLOOD CELL COUNT 4.71 3.80-5.10 - Million /uL HEMOGLOBIN 14.2 11.7-15.5 - g/dL HEMATOCRIT 42.4 35.0-45.0 - % MCV 90.0 80.0-100.0 - fL MCH 30.1 27.0-33.0 - pg MCHC 33.5 32.0-36.0 - g/dL PLATELET COUNT 294 140-400 - Thousand/u L RDW 13.1 11.0-15.0 - % NEUTROPHILS 51.9 - % LYMPHOCYTES 37.1 - % MONOCYTES 6.3 - % EOSINOPHILS 3.0 - % BASOPHILS 1.7 - % ABSOLUTE LYMPHOCYTES 2337 850-3900 - cells/uL ABSOLUTE MONOCYTES 397 200-950 - cells/uL ABSOLUTE EOSINOPHILS 189 15-500 - cells/uL ABSOLUTE BASOPHILS 107 0-200 - cells/uL MPV 9.8 7.5-12.5 - fL * Examination: G eneral Examination: GENERAL APPEARANCE: w ell developed, well nourished, in no acute distress. HEAD: n ormocephalic, atraumatic. EYES: p upils equal, round, reactive to light and accommodation, sclera non-icteric. EARS: n ormal. ORAL CAVITY: m ucosa moist. THROAT: c lear. NECK/THYROID: n leticia supple, full range of motion, no cervical lymphadenopathy, no bruits. SKIN: w arm and dry, no suspicious lesions. HEART: r egular rate and rhythm, S1, S2 normal, no murmurs.? LUNGS: c lear to auscultation bilaterally. BREASTS: d one by mortgage protection sales. ABDOMEN: s oft, nontender, nondistended, bowel sounds present, normal, no organomegaly , no masses palpable. RECTAL EXAM: d one by mortgage protection sales. FEMALE GENITOURINARY: d one by mortgage protection sales. EXTREMITIES: n o clubbing, cyanosis, or edema. NEUROLOGIC: n onfocal, motor strength normal upper and lower extremities, sensory exam intact. Assessment: * Assessment: 1. M otion sickness, subsequent encounter - T75.3XXD (Primary) 2 . P rediabetes - R73.09 3 . T ubular adenoma - D36.9 4 . N JEANINE (nonalcoholic steatohepatitis) - K75.81 Plan: * Treatment: 2. T ubular adenoma Notes: needs colonoscopy next year Referral To:[facility] Reason:tubular adenoma 3. O thers Refill Scopolamine Patch 72 Hour, 1 MG/3DAYS, 1 patch to skin behind the ear as needed, Transdermal, every 3 days, 14 days, 7, Refills 2. * Procedure Codes: * Follow Up: 6 Months * * Sign off status: Completed true * Provider: Rufus Mcconnell MD Date: 0 07/11/2024 Generated for Cielo james/Belinda/Les on: 0 08/14/2024 03:16 PM EDT History and Physical Notes * HPI (History of Present Illness) Category Sub-Category Detail Notes Category Not es Symptom(s) patient is a 73 yo female here for annual visit with review of recent labs and follow up of chronic issues Depression Screening PHQ-9 Little inte rest or pleasure in doing things: Not at all Feeling down, depressed, or hopeless: No t at all Trouble falling or staying asleep, or sl eeping too much: Not at all Feeling tired or having little energy: N ot at all Poor appetite or overeating: Not at all Feeling bad about yourself o r that you are a failure, or have let yourself or your family down: Not at all Trouble concentrating on thi ngs, such as reading the newspaper or watching television: Not at all Moving or speaking so slowly that other people could have noticed; or the opposite, being so fidgety or restless that you have been moving around a lot more than usual: Not at all Thoughts that you would be b thalia off or of hurting yourself in some way: Not at all Total Score: 0 Interpretation and Intervention Depression Mike alarcon Findings: Negative Follow-Up for Depression: : review of PH Q-9 found negative result, no follow-up needed SDOH Questions SDOH Questions In the past year have you been worried about losing housing?: No In the past year have you or any family members you live with been unable to get any of the following when it was really needed? Check all that apply:: None Fall Risk History Have you had any falls with injury i n the past year?: No Have you had two or more falls in the st year?: No Communication Needs Communication Needs Does the patient have a hearing impairment: No Does the patient have a vision impairmen t?: Yes If yes, what is the vision impairment?: Glasses Does the patient have a cognition impair ment?: No Examination Category Sub-Category Detail Notes Category Not es General Examination GENERAL APPEARANCE: well dev eloped, well nourished, in no acute distress HEAD: normocephalic, atrau matic EYES: pupils equal, round, reactive to light and accommodation, sclera non-icteric EARS: normal THROAT: clear NECK/THYROID: neck supple, full ra nge of motion, no cervical lymphadenopathy, no bruits HEART: regular rate and rhy thm, S1, S2 normal, no murmurs LUNGS: clear to auscultatio n bilaterally ABDOMEN: soft, nontender, non distended, bowel sounds present, normal, no organomegaly , no masses palpable NEUROLOGIC: nonfocal, motor stre ngth normal upper and lower extremities, sensory exam intact SKIN: warm and dry, no gavin picious lesions EXTREMITIES: no clubbing, cyanosi s, or edema BREASTS: done by mortgage protection sales RECTAL EXAM: done by mortgage protection sales FEMALE GENITOURINARY: done by mortgage protection sales ORAL CAVITY: mucosa moist Consultation Request Notes Referral Date Referring Provider Referred Provider Not es 07/11/2024 Josue Mcconnell LUCYNA tubular ad enoma
--- NOTE | 2024-08-14 14:49 | MHC.OFFVIS ---
Vital Signs 08/14/24 14:50 Height 5 ft 4 in Weight 188 lb BMI 32.3 BP 154/74 H Blood Pressure Location Rt brachial Position Sitting Pulse 72 Pulse Source Pulse Oximeter Pulse Oximetry (%) 95 Oxygen Delivery Method Room Air Intake Visit Reasons: 1 Year FUV. Petersen's w/ dysphagia. Intake Note: ESTABLISHED PATIENT for Petersen's w/ Dysphagia. 1 year FUV. LVM about labs 08/12. Imaging done. Chief Complaint; Pt states that she took her pantoprazole until she ran out of the medication. Pt was unsure if she was supposed to continue this medication despite feeling that her sx were controlled without the Rx or not. Tile Fitter Required: No Accompanied by: Self / Same As Patient Allergies No Known Allergies (No Known Allergies*) Allergy (Verified 07/21/23 08:47) HPI HPI 1 Year FUV. 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 Patient was encouraged to take it every morning half an hour before breakfast. Avoid dietary triggers. Avoid gluten and dairy. Will recheck liver panel and will check liver fibrosis as well as ultrasound with elastography in 6 months. Patient was encouraged to lose weight, avoid alcohol. She will return in 6 months, sooner on as needed basis. She is agreeable to this plan and verbalizes understanding of instructions. She was given the opportunity to ask questions and all questions answered. ? Thank you for allowing me to participate in her care Orders Liver Panel 6 Months R74.01 US abdomen zazueta w elastography 6 Months R74.01 Liver Fibrosis Pnl 6 Months R74.8 Refilled pantoprazole take one tablet half an hour before breakfast 40 mg PO DAILY 90 tabs 4RF K21.9 TODAY'S VISIT Patient is here today for follow-up and to discuss lab and ultrasound results. Labs done August 08 improved liver enzymes, however still pending liver fibrosis panel. Liver elastography on ultrasound improved. Patient reports that she has been feeling well. Denies any GI concerning symptoms. Admits that she changed her diet and it is not eating fast or processed food. 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 Currently she does not have any reflux or any upper GI symptoms. Patient will be due to go for colonoscopy and endoscopy in December of 2025 [facility] Medical History No pertinent past medical history Surgical History (Updated 08/14/24 @ 15:01 by ERIC Roca) History of colonoscopy H/O endoscopy Family History Father Diabetes mellitus Colorectal cancer Mother Glioblastoma Social History Alcohol intake: current Alcohol intake frequency: does not drink Patient Tobacco Use Status: Never used Tobacco Current occupational status: employed Current occupation: insurance company Review of Systems Const Denies weight gain and Denies weight loss ENT Reports no additional complaints, Denies dysphagia and Denies odynophagia Card Reports no additional complaints Resp Reports no additional complaints GI Denies abdominal pain, Denies belching, Denies melena, Denies bloating, Denies change in bowel habits, Denies dysphagia, Denies excessive flatus, Denies dyspepsia, Denies heartburn, Denies diarrhea, Denies loose stools, Denies nausea, Denies odynophagia and Denies vomiting Musc Reports no additional complaints Neuro Reports no additional complaints Psych Reports no additional complaints Endo Reports no additional complaints Physical Exam Vital Signs: BMI result Body Mass Index 32.6 Const General: healthy appearing and no acute distress Nutritional Appearance: obese Orientation/consciousness: patient oriented x3 Resp Effort & Inspection: normal respiratory effort, able to speak in complete sentences, no tracheal deviation and symmetric chest movement Auscultation: clear to auscultation bilaterally Cardio Rate: regular rate GI Inspection: Yes normal to inspection, No distended and Yes obesity Palpation (GI): Soft to palpation, not firm, nontender and No hepatosplenomegaly present Auscultation: normal bowel sounds General: Yes no CVA tenderness Back/Spine/Pelvis Back: no CVA tenderness Skin General skin exam: elasticity normal, turgor normal and dry skin Neuro General: patient oriented x3 Psych Appearance: grossly normal Mental Status: mental status grossly normal Results Reviewed Results Reviewed: ULTRASOUND WITH LIVER ELASTOGRAPHY 01/10/2024 FINDINGS: PANCREAS: The visualized pancreatic head and body are normal in appearance. The remainder of the pancreas is obscured from visualization by the overlying bowel gas. LIVER: Liver is mildly enlarged. There is diffusely increased hepatic echogenicity. There is smooth hepatic contour. No intrahepatic biliary dilatation. No suspicious focal liver lesion. The right lobe measures 20.3 cm in length. The left lobe measures 13.1 cm in length. Portal flow is hepatopedal. Shear wave liver elastography median stiffness is 1.6 m/s (reference: normal median stiffness is 1.3 m/s or less). (Previous measurement was 2.28 m/s) IQR/median stiffness to assess sampling precision is 0.15 (reference: good quality data set is IQR/median stiffness of 0.15 or less). GALLBLADDER: The gallbladder is physiologically distended with intraluminal mobile gallstones. No evidence of sludge, polyps, wall thickening or pericholecystic fluid. Negative sonographic Jonas sign. COMMON BILE DUCT: Normal in caliber measuring 0.5 cm in diameter. RIGHT KIDNEY: No hydronephrosis. No renal calculi or focal parenchymal lesions. The kidney measures 11.0 cm in maximum dimension. There is a simple cyst in the midpole measuring 1.2 cm. Again noted arising exophytically laterally from the mid pole is an oval mixed echogenicity mass measuring 0.9 x 1.0 x 0.7 cm, unchanged from the prior exam. FREE FLUID: None. US/US abdomen zazueta w elastography IMPRESSION: 1. Mild hepatic enlargement with diffusely increased hepatic echogenicity, consistent with steatosis and/or underlying hepatocellular disease. No suspicious focal hepatic lesion. 2. Liver elastography: In the absence of other known clinical signs, measurements rule out compensated advanced chronic liver disease. If there are known clinical signs, further testing may be needed for confirmation. When compared with prior exam, there is a statistically significant decrease in liver stiffness (decrease at least 10%). 3. Cholelithiasis. No evidence of gallbladder inflammation. 4. Stable mixed echogenicity mass arising from the lateral mid right kidney measuring 0.9 x 1.0 x 0.7 cm, unchanged. Given stability this is most likely benign although is indeterminate. This may represent an angiomyolipoma, however further imaging with CT or MRI is recommended for confirmation. Further imaging was recommended on the prior exam as well. Assessment & Plan Assessment & Plan (1) Elevated transaminase measurement: Code(s): R74.01 - Elevation of levels of liver transaminase levels (2) Eosinophilic esophagitis: Code(s): K20.0 - Eosinophilic esophagitis (3) Petersen's esophagus determined by biopsy: Code(s): K22.70 - Petersen's esophagus without dysplasia (4) Steatosis of liver: Code(s): K76.0 - Fatty (change of) liver, not elsewhere classified (5) Family history of liver cancer: Code(s): Z80.0 - Family history of malignant neoplasm of digestive organs Plan Patient will continue pantoprazole. Avoid dietary triggers and late night snacking. Staying upright for minimum 3 hours after meals discussed with patient. Due for colonoscopy in next December. Continue low-fat, low-salt, low carb and high-protein diet. Patient will follow-up in 1 year, sooner on as needed basis. She is agreeable to this plan and verbalizes understanding of instructions. She was given the opportunity to ask questions and all questions answered. Thank you for allowing me to participate in her care Orders: Orders Liver Panel 6 Months R74.01 - Elevation of levels of liver transaminase levels Medications: Refilled pantoprazole take one tablet half an hour before breakfast 40 mg PO DAILY 90 tabs 4RF K21.9 - Gastro-esophageal reflux disease without esophagitis Coding Level of Care Code Est Pt Level 3 (28158) Diagnoses Elevated transaminase measurement R74.01 Eosinophilic esophagitis K20.0 Petersen's esophagus determined by biopsy K22.70 Steatosis of liver K76.0 Family history of liver cancer Z80.0 Time Spent (min) 25 Comment 15 minutes spent with patient and additional 10 minutes spent reviewing her records
[2024-08-14 14:50] VITALS: BP 154/74; PULSE 72; O2SAT 95; BMI 32.3
== END 2024-08-14 15:10 | disposition home or self-care (01) ==
LOC: HO.HGI 14:47
PROVIDERS: PCP Internal Medicine; Visit Provider Nurse Practitioner Family
DX: R74.01 Elevation of levels of liver transaminase levels (principal); K20.0 Eosinophilic esophagitis; K22.70 Barrett's esophagus without dysplasia; K76.0 Fatty (change of) liver, not elsewhere classified; Z80.0 Family history of malignant neoplasm of digestive organs
CPT/HCPCS: 99213

== ENCOUNTER → 2024-08-14 14:47 | Outpatient (BNVA) | payer MEDICARE, SELFPAY | PROVIDERS: PCP Internal Medicine; Visit Provider Nurse Practitioner Family | DX: K22.70 Barrett's esophagus without dysplasia (principal); K20.0 Eosinophilic esophagitis; K76.0 Fatty (change of) liver, not elsewhere classified; R74.01 Elevation of levels of liver transaminase levels; Z80.0 Family history of malignant neoplasm of digestive organs | CPT/HCPCS: 99212 ==

== ENCOUNTER 2024-08-15 09:49 | Outpatient (REF) | payer MEDICARE, SELFPAY ==
--- OUTSIDE RECORDS SUMMARY | 2024-04-30 08:55 | XMS_ITS | Continuity of Care Document ---
Author Organization [facility] Address [address] [place] [phone] Phone Care Team Providers Care Smoke Tester Name Role Phone Estee OD, Obdulia Unavailable Unavailable Allergies, Adverse Reactions, Alerts Substance Reaction Status Criticality No Known Allergies Active No Inform ation Procedures Procedure Date Refraction Eye exam new comprehensive Advance Directives Directive Yes / No Effective Date File Name No Information Encounters Encounter Description Practice Location Reason(s) For Visit Diagnoses Date Provider Providers Copied on Encounter [facility], [address] [place] [address], [id number], [place] tel:[phone] ECOF Clio blurry vision (chief complaint) Age-related nuclear cataract, bilateralPr esbyopiaMyo fransico, bilateral Estee Obdulia. [address] [place] [address], [id number], [place]. tel:[phone] Referring Provider: Obdulia Fontanez, [address] [place] [address], [id number]. tel:[phone] Family History Family Member Type Diagnosis Age At Onset Mother Problem Glaucoma Problem No family history of Blindne ss Problem No family history of Macular degeneration Immunizations Vaccine Date Status Comments pneumococcal polysaccharide vaccine, 23 valent administered Source: Other Provid er Zoster administered Source: Other P rovider Flu (split) (3 yrs or older) administered Source: Other Provider Payers Payer name Insurance type Covered democrat ID Authoriza tion(s) Medicare Traditional MB [id number] BCBS Comm PPO BL [id number] Social History Type Description Quantity Date Captured [...]
--- OUTSIDE RECORDS SUMMARY | 2024-07-11 05:30 | XMS_ITS ---
Author Organization Josue Mcconnell MD Address [address] [place] [phone] Care Team Providers Care Medical Underwriter Name Role Phone Josue Mcconnell Primary Care [...] kg/m2 07/11/2024 weight is down 3 pounds formerly [facility] 12-29-23 Encounters Encounter Location Date Provider Diagnosis Josue Mcconnell MD [address] [place] [address] [place] [phone] 07/11/2024 Josue Mcconnell Motion sickness, subsequent encounter [...] 01/09/2025 08:15:00 AM, [address], [place], [place], [phone], Provider Name:Josue Patrick ier, 01/16/2025 10:15:00 AM, [address], [place], [place], [phone], Provider Name:Josue Patrick ier, 07/10/2025 07:30:00 AM, [address] [place] [address], Suite [facility], [place], [place], [phone], Provider Name:Josue Aiden Celina castror, 07/17/2025 08:30:00 AM, [address] [place] [address], Suite [facility], [place], [place], [phone], Progress Notes * Desirae MORALES ADOB:1950 (73 yo F)Acc No.[id number]:07/11/2024 Patient: Carmelo ANJUMDesirae HENAO Provider: Rufus Mcconnell MD :1950 A ge:73 Y S ex:Female Date:07/11/2024 Address:[address] [place] [address], [id number] Subjective: * Chief Complaints: * C omp [...] 3.8-10.8 - Thousa nd/uL ABSOLUTE NEUTROPHILS [phone] - cells/u L RED BLOOD CELL COUNT [...] to auscultation bilaterally. BREASTS: d one by component prep operator. ABDOMEN: s oft, nontender, nondistended, bowel sounds present, normal, no organomegaly , no masses palpable. RECTAL EXAM: d one by component prep operator. FEMALE GENITOURINARY: d one by component prep operator. EXTREMITIES: n o clubbing, cyanosis, or edema. [...] MD Date: 0 07/11/2024 Generated for Cielo james/Belinda/Dayannaitting on: 0 08/15/2024 10:21 AM EDT History and Physical Notes * HPI [...] cyanosi s, or edema BREASTS: done by component prep operator RECTAL EXAM: done by component prep operator FEMALE GENITOURINARY: done by component prep operator ORAL CAVITY: mucosa moist Consultation Request Notes Referral Date Referring Provider Referred Provider Not es 07/11/2024 Josue Mcconnell LUCYNA tubular ad enoma
--- NOTE | ~2024-08-15 | US_ITS ---
CLINICAL HISTORY: kidney lesion US Renal Comparison: US/SR - US ABDOMEN LIMITED - 03/18/22 08:19 EST. No other relevant imaging comparison is available at the time of this report. Findings: Right kidney normal size and echotexture, 11.0 cm length. There is a predominantly hyperechoic cortically based mass arising from the mid right kidney measuring 10 x 8 x 8 mm. This could be an angiomyolipoma. This lesion was not imaged on the prior ultrasound. Additional simple cyst in the mid kidney measuring up to 10 mm. This appears stable from the prior ultrasound. Left kidney normal size and echotexture, 11.1 cm length. No collecting system dilatation of either kidney. Normal color Doppler. IMPRESSION: 1. 10 mm mass predominantly hyperechoic arising from the mid kidney possibly an angiomyolipoma. Consider confirmation with MRI. 2. Additional simple appearing right renal cysts. Unremarkable left kidney. This document has been electronically signed by: Misty Tran MD on 08/16/2024 09:37:08
== END 2024-08-15 09:50 | disposition home or self-care (01) ==
LOC: HO.US 09:49
PROVIDERS: PCP Internal Medicine; Visit Provider Internal Medicine
DX: N28.9 Disorder of kidney and ureter, unspecified (principal)
CPT/HCPCS: 76775

== ENCOUNTER → 2024-08-15 10:11 | Outpatient (BNV) | payer MEDICARE, SELFPAY | PROVIDERS: PCP Internal Medicine; Visit Provider Radiology Diagnostic Radiology | DX: N28.1 Cyst of kidney, acquired (principal) | CPT/HCPCS: 76775 ==

== ENCOUNTER 2025-01-09 11:53 | Outpatient (REF) | payer MEDICARE, SELFPAY ==
[2025-01-09 12:26] LABS: Alanine Aminotransferase 60 U/L (0-31); Albumin Level 5.0 g/dL (3.5-5.0); Alkaline Phosphatase 115 U/L (39-117); Aspartate Amino Transferase 52 U/L (5-31); Cholesterol 246 mg/dL (<200); HDL Cholesterol 47 mg/dL (>40); Total Protein 7.9 g/dL (6.5-8.0); Triglycerides 203 mg/dL (<150)
[2025-01-09 14:07] LABS: Reflex LDLD? No
== END 2025-01-09 11:54 | disposition home or self-care (01) ==
LOC: HO.LNP 11:53
PROVIDERS: Visit Provider Internal Medicine
DX: E78.00 Pure hypercholesterolemia, unspecified (principal); R73.03 Prediabetes
CPT/HCPCS: 80061; 80076; 82947; 83036